=== PATIENT | female | born 1975 | race Caucasian/White ===

== ENCOUNTER 2017-10-12 11:03 | Day surgery (SDC) | payer BC, SELFPAY ==
[2017-10-12] VITALS (7 sets, daily range): BP systolic 121–126; BP diastolic 77–87; PULSE 74–98; RESP 16–18; TEMP 36.4–36.8; O2SAT 94–100; BMI 28.0
[2017-10-12 11:29] LABS: Internal QC Validated? YES +Cl - CLEAR BKGD; Pregnancy, Urine Negative Negative
--- NOTE | 2017-10-12 12:18 | PCM.DC.TUB ---
Discharge Diet: No Restrictions Discharge Activity: May not drive while taking narcotic pain medications., May Shower, May Take a Tub Bath Return to work on:: 10/17/17 May resume sexual activity in: 1-2 weeks - when comfortable Weight Bearing Status: Weight bearing as tolerated Additional Activity Instructions:: Ambulate often the next week after surgery. Call your doctor if you observe: Fever of 101 or Higher, Using more than one pad per hour, Calf discomfort, Uncontrolled pain Change Dressing in (Days):: 4 Remove Dressing in (days):: 4 Cleanse incision/area with: Soap & Water, Keep Dressing Clean & Dry Additional Instructions: You may take Aleve or Ibuprofen for milder pain, and ADD Percocet as needed for more severe pain. Allergies/Adverse Reactions: Allergies No Known Allergies Allergy (Verified 10/05/17 14:59) Medications to take at Discharge Duloxetine Hcl [Cymbalta] 60 mg PO DAILY 09/02/16 Lorazepam [Ativan] 0.5 mg PO DAILY PRN PRN 10/05/17 Oxycodone HCl/Acetaminophen [Percocet 2.5-325 mg Tablet] 1 - 2 tablet PO Q6H PRN PRN 2 Days #10 tablet 10/12/17 The following prescriptions were given: Oxycodone HCl/Acetaminophen [Percocet 2.5-325 mg Tablet] 1 - 2 tablet PO Q6H PRN PRN 2 Days #10 tablet PRN Reason: Mod-Severe Pain (4-04/19) Primary Care Physician: Care Physician,No Primary [Primary Care Provider] - Please Follow Up With: Emelyn Mares MD - [phone] When: in two weeks as planned for postop incision check
--- NOTE | 2017-10-12 12:30 | FALS_PTH ---
PATIENT: WILLIAMS GOLDEN LOC: [facility] [place] U#:[id number] AGE/SX: 42/F ROOM: RE10/12/[address]: Dr. Emelyn Mares MD : 1975 BED: DIS: 10/12/2017 SPEC #: [id number] RECD: 10/12/17 16:10 STATUS: MICHAEL DEANNA #: [id number] VIDHI: 10/12/17 12:[address]: Emelyn Mares DEPT: SURGICAL PATHOLOGY RECD BY: Russell Young ENTERED: 10/13/17 08:04 SP TYPE: FALL TUBES OTHR DR: No Primary Care Phys Tissues: Fallopian tube Procedures: Surgery Specimen Level II HEADER OPERATION: Laparoscopic salpingectomy PRE-OP DIAGNOSIS: Sterilization request TISSUE SUBMITTED: Bilateral fallopian tubes MICROSCOPIC DIAGNOSIS Bilateral fallopian tubes, bilateral salpingectomy: Bilateral fallopian tubes including fimbrial ends, no pathologic diagnosis. CAM:maddi 10/14/17 MICROSCOPIC DESCRIPTION Slides are reviewed. GROSS DESCRIPTION Received in fixative is one container labeled with the patient's name and designated bilateral fallopian tubes. The specimen consists of two fallopian tubes with an average length of 5 cm and has a maximal diameter of 0.5 cm. Both fallopian tubes have normal fimbriated ends. No mass lesions are identified. Embossing Clerk sections are submitted in two cassettes as follows: 1 ? one fallopian tube, 2 ? the other fallopian tube. / AM:maddi 10/13/17 TC:4 CPT: 31163 x2
[2017-10-12] MEDS: Bupiv/Epi 0.5% Mpf 30 ML Vial (13:10)
--- NOTE | 2017-10-12 13:25 | PCM.OP.BLANK ---
Operative Report Date of Procedure: 10/12/17 - Laparoscopic Bilateral salpingectomy PROCEDURE: Laparoscopic Bilateral Salpingectomy Lysis of adhesions PREOPERATIVE DIAGNOSIS: Sterilization request POSTOPERATIVE diagnosis: Sterilization request Surgeon: Emelyn Mares MD Anesthesia: general anesthesia. Jennyfer Quiñonez MD EBL: minimal Complications: None Drains: Red Chu catheter used to drain the bladder prior to initiation of the case Fluids: LR replacement Findings; Normal appearing, retroverted uterus. Fallopian tubes and ovaries are WNL. Adhesion in LLQ between bowel and pelvic side wall. (dissected free) Gross inspection of bowel, omentum. liver edge also WNL. photos were taken of the uterus and ovaries after Bilateral salpingectomy, and of the RUQ / liver edge. She i Narrative account: After the risks, benefits, alternatives of procedure had been reviewed with the patient, informed consent was obtained. The patient was taken back to the Operative room with an IV running. she was positioned on the operating table in dorsal supine position, where she was given general anesthesia. Once asleep she was repositioned to the dorsal lithotomy position and prepped and draped in the usual sterile fashion. A red Chu catheter was used to drain the bladder prior to initiating the case. A single toothed tenaculum and Venecia cannula were placed into the cervix to allow manipulation of the uterus and cervix during the case. Attention was then turned to the anterior abdominal wall where 0.25 % Marcaine with epinephrine was instilled at the suprapubic and infraumbilical skin and at a point midway between in the midline. Skin incisions were then created in the midline at the suprapubic skin and at the infraumbilical skin and midway between the two. While maintaining upward traction of the anterior abdominal wall a Veress needle was inserted through the umbilical incision into the peritoneal cavity. There was free drop of saline, low opening pressure and free flow of CO2 noted. Once the intraabdominal pressure had reached 12 mm of mercury the Veress needle was removed and a bladeless 5 mm trocar was placed through infraumbilical skin incision into the peritoneal cavity. Correct placement was confirmed using the scope. Under direct visualization then with the patient in Trendelenburg position, a bladeless 5 mm trocar was inserted in through suprapubic skin incision into the peritoneal cavity and at a point midway between the infraumbilical and suprapubic trocars. The uterus as anteverted and both ovaries and fallopian tubes were WNL. There was an adhesion in the LLQ between the bowel and pelvic side wall, which was taken down by blunt dissection. Excellent hemostasis was noted. The Left fallopian tube was grasped and retracted medially and using a LigaSure device the fallopian tube was excised from the ovary and mesosalpinx. Excellent hemostasis was noted at the excision site. The L fallopian tube was brought through the suprapubic trocar and set aside for later pathology review. In a similar manner the R fallopian tube was grasped and retracted medially and the fallopian tube was excised and removed from the abdominal cavity through the suprapubic trochar. The Fallopian tubes were sent to pathology. Excellent hemostasis was noted by visualization of the pelvis, ovaries, and remaining mesosalpinx. Photos were taken of the uterus and Bilateral remaining ovaries and of the RUQ and liver edge. At this point the the procedure was terminated. The pneumoperitoneum was reduced and the instruments and trocars were removed from he the anterior abdominal wall skin. The skin incisions were closed with 4-0 Monocryl in a subcuticular fashion. Dermabond and OpSites were applied to the skin. The Single toothed tenaculum and Venecia cannula were removed from the vagina. The patient was returned to dorsal supine position. She was awakened from general anesthesia. She was transferred to the recovery room bed in stable condition after tolerating the procedure well. Sponge, lap, needle and instrument counts were correct x two. Medications given preop and intraoperatively included: 10 cc of 1/2 % Marcaine with epinephrine --used as a subcutaneous block, and Toradol 30 mg IV x one. For a complete listing of medications given preop and intraop , please see the anesthesia record.
== END 2017-10-12 15:02 | disposition home or self-care (01) ==
LOC: SDC 11:07 → AC 11:08
PROVIDERS: Anesthesiology; Visit Provider Obstetrics & Gynecology
PROC: (CPT 58661; principal; 2017-10-12 12:15)
DX: Z30.2 Encounter for sterilization (principal); F41.9 Anxiety disorder, unspecified; F32.9 Major depressive disorder, single episode, unspecified; Z79.899 Other long term (current) drug therapy
CPT/HCPCS: 49329; 58661; 81025; 88302; J7120; J2405

== ENCOUNTER → 2017-10-26 09:19 | Outpatient (CLI) | payer BC, SELFPAY ==
--- NOTE | 2017-10-26 09:21 | BI_ITS ---
MAMMOGRAPHY - BILATERAL SCREENING REASON FOR EXAM: Female, 42 years old. Routine annual screening examination. PERTINENT HISTORY: Non-contributory. TECHNIQUE: Digital bilateral breast shweta (3D mammographic acquisition) in the CC and MLO projections. 2-D mediolateral oblique (MLO) and craniocaudad (CC) views of both breasts were obtained. CAD: Full Field Digital Mammography with Computer Added Detection was performed. COMPARISON: None. Baseline examination. FINDINGS: Breast Composition: The breasts are heterogeneously dense, which may obscure small masses. There are no dominant masses or suspicious calcifications. Small bilateral benign appearing axillary lymph nodes. No other significant abnormalities are identified. BI/SCREENING MAMM (CAD), BILAT IMPRESSION: Negative screening mammogram. Yearly followup mammogram recommended. (A) ASSESSMENT CATEGORY: BIRADS Category 2: Benign. A letter regarding these results will be sent to the patient by the facility within 30 days. Approximately 10% of breast cancers are not detected by mammography. A normal mammogram should not delay biopsy of a clinically suspicious abnormality. [id number] Electronically Signed: Javier Regan MD at 10:51 EDT Tel [phone], Service support ,
== END ==
PROVIDERS: Visit Provider Obstetrics & Gynecology
DX: Z12.31 Encounter for screening mammogram for malignant neoplasm of breast (principal)
CPT/HCPCS: 77063; 77067

== ENCOUNTER 2018-02-28 08:47 | Emergency (ER) | payer BC, SELFPAY ==
[2018-02-28 08:47] VITALS: BP 133/84; PULSE 95; RESP 16; TEMP 37.3; O2SAT 95; BMI 29.3
--- NOTE | 2018-02-28 09:16 | ED.VISSUMM ---
- ER Visit Summary Date of Service: 02/28/18 Chief Complaint: Abdominal pain History of Present Illness: The patient is a [address] Barrett. She reports that she has left-sided abdominal pain that began 3 days ago. It is a cramping, stabbing pain is 7 out of 10 at worst and 2 out of 10 currently. Is worsened by movement, bending, or twisting. Is relieved by remaining still. She has nausea without vomiting. She had 2 episodes of diarrhea today. No blood in her stools or black tarry stools. No dysuria or frequency. Last menstrual period was 2 weeks ago. She reports she has had similar symptoms with diverticulitis in the past. On review of systems patient reports that she has a headache that stated 10 severity. She has a history of similar headaches. She describes as a throbbing pain posterior to her eyes and the top of her head. She does have photophobia. She denies any recent injury to her head. No change in her vision. No numbness or weakness. Physical Examination: Vitals: Stable. Afebrile. General: Well-nourished and well-developed. Head: Normocephalic atraumatic. Neck: Supple, no lymphadenopathy. No JVD. Nontender. Cardiovascular: Regular rate and rhythm. No murmurs. Respiratory: No respiratory distress. Clear to auscultation bilaterally. Abdominal: Soft, mild tenderness palpation in the left upper and left lower quadrants, normal bowel sounds. No guarding, rebound, or peritoneal signs. Back: Nontender. Extremities: Nontender, no edema. Skin: Normal color, no rash. Neurologic: Alert and oriented ?3. Cranial nerves II through XII are intact. Normal strength and sensation. Psych: Normal affect. Test Results: CBC is marked for a white count of 11.3, segmented neutrophils 88, lymphocytes of 8. Chem-7 is more for chloride 108. UA is normal. test negative. CT flank shows no uncomplicated acute diverticulitis of the splenic flexure and proximal descending colon. Emergency Department Course and Treatment: Patient had an IV placed. She was given Toradol, Reglan, and Benadryl IV. She is resting comfortably. She was given Cipro and Flagyl p.o. Treatment Plan: Patient will be discharged on Cipro, Flagyl, and [place]. Instructed to follow-up her primary care physician 1 week for repeat exam. Return to the emergency department for any worsening symptoms. Disposition: To home in improved and stable condition. Impression: 1. Diverticulitis. 2. Migraine headache. This note was generated with [employer] dictation software. It may contain incorrect words, spelling, and punctuation that were not noted in review of the chart prior to signing ED Disposition - Plan for ED Patient: Chief Complaint: Abd Pain Instructions: ED Diverticulitis Prescriptions: Docusate Sodium [Colace] 100 mg PO DAILY #20 capsule Hydrocodone/Acetaminophen [[place] 5-325 Tablet] 1 - 2 each PO 4X/DAY PRN PRN 3 Days #12 tablet PRN Reason: Pain Ciprofloxacin [Cipro] 500 mg PO BID #20 tablet Metronidazole [Flagyl] 500 mg PO Q6H #40 tablet Referrals: Annemarie Barrett DO [Primary Care Provider] - 1 Week
[2018-02-28 09:17] LABS: Bacteria 0 SEEN /hpf (None Seen); Mucous, Urine 0 SEEN /hpf (<or=2+); Red Blood Cells-Urine 0 SEEN /hpf (0-5)
[2018-02-28 09:22] LABS: Color, Urine Yellow (Yellow); Glucose, Dipstick Normal (Normal); Ketone-Dipstick Negative (Negative); Leukocyte Esterase-Dipstick Negative /ul (Negative); Nitrite-Dipstick Negative (Negative); Occult Blood-Urine Negative /ul (Negative); Protein-Dipstick Negative (Negative); Urine Bilirubin Dipstick Negative (Negative); Urine Clarity Clear (Clear); Urine Urobilinogen Normal (Normal)
[2018-02-28] MEDS: Metoclopramide 10 MG/2 ML Vial IV (09:24)
[2018-02-28] MEDS: 0.9% Normal Saline 1,000 ML 1000 ML IV (09:24)
[2018-02-28] MEDS: DiphenhydrAMINE 50 MG/ML Syringe IV (09:24)
[2018-02-28] MEDS: Ketorolac 30 MG/ML Syringe IV (09:24)
[2018-02-28 09:29] LABS: Internal QC Validated? YES +Cl - CLEAR BKGD; Pregnancy, Urine Negative Negative
[2018-02-28 09:33] LABS: Absolute Lymphocyte Count 0.87 X10^3/ul (0.83-4.51); Absolute Neutrophil Count 9.9 X10^3/uL (2.0-7.7); Basophil# 0.02 X10^3/uL; Basophil% 0.2 % (0-1); Eosinophil# 0.05 X10^3/uL; Eosinophils% 0.4 % (0-5); Hematocrit 40.9 % (37-47); Hemoglobin 13.1 g/dl (12.0-15.0); Lymphocyte # 0.87 X10^3/ul (4.0); Lymphocyte % 7.7 % (19-41); Mean Corpuscular Hgb 29.4 pg (27.0-32.0); Mean Corpuscular Volume 91.9 fL (81-99); Mean Platelet Vol. 10.9 fl (6.2-12.0); Monocyte# 0.41 X10^3/uL; Monocyte% 3.6 % (0-10); Neutrophil # 9.92 X10^3/uL (2.7-7.7); Neutrophil % 87.9 % (47-70); Platelet Count 222 K/mm3 (150-450); RBC Distribution Width CV 13.6 % (11.6-14.6); RBC Distribution Width SD 45.7 fl (35.1-43.9); Red Blood Count 4.45 M/mm3 (4.2-5.4); White Blood Count 11.3 K/mm3 (4.4-11.0)
[2018-02-28 09:36] LABS: POSITIVE COUNT NO; POSITIVE DIFFERENTIAL NO; POSITIVE MORPHOLOGY NO
[2018-02-28 09:38] LABS: Anion Gap 5 (5-15); BUN 9 mg/dL (7-18); BUN/Creat Ratio 15.7 RATIO (10-20); Calcium,Total 8.5 mg/dL (8.5-10.1); Chloride 108 mmol/L (98-107); Creatinine, Serum 0.57 mg/dL (0.55-1.02); EST Glomerular Filtration Rate 122 mL/min (>60); Est Glom Filt Rate - Afr Amer 148 mL/min (>60); Estimated Creatinine Clearance 111.03 ml/min; Glucose 101 mg/dL (74-106); Potassium 3.7 mmol/L (3.5-5.1); Sodium Level 141 mmol/L (136-145)
[2018-02-28 09:45] LABS: Squamous Epithelial Cells - UA 0-5 SEEN /hpf (5-10); White Blood Cells 0 SEEN /hpf (0-5)
[2018-02-28] MEDS: Ciprofloxacin 500 MG Tablet PO (10:31)
[2018-02-28] MEDS: metroNIDAZOLE 500 MG Tablet PO (10:31)
[2018-02-28 10:37] VITALS: BP 136/78; PULSE 82; RESP 16; O2SAT 98
== END 2018-02-28 10:38 | disposition home or self-care (01) ==
LOC: ED 09:32
PROVIDERS: Emergency Provider Emergency Medicine; PCP Family Medicine
DX: K57.32 Diverticulitis of large intestine without perforation or abscess without bleeding (principal); G43.909 Migraine, unspecified, not intractable, without status migrainosus
CPT/HCPCS: 74176; 80048; 81001; 81025; 85025; 96374; 96375; 99284; J7030

== ENCOUNTER → 2018-07-31 14:47 | Outpatient (CLI) | payer BC, SELFPAY ==
[2018-07-31 11:33] VITALS: BMI 29.2
--- OUTSIDE RECORDS SUMMARY | 2018-10-03 03:01 | XMS RPT_ITS ---
:1975 Author Organization OHIP Support Name Relationship Address Phone [facility] [place] [address] + [place] [address] CHANTEL RUSSELL Unavailable [address] + [place] [address] [facility] [place] [address] + [place] [address] RUSSELL GOLDEN Unavailable [address] + [place] [address] [facility] [place] [address] + [place] [address] RUSSELL GOLDEN Unavailable [address] + [place] [address] [facility] [place] [address] + [place] [address] BAILEY SALOMON Unavailable [address] + [facility] [address] RUSSELL GOLDEN Unavailable [address] + [place] [address] [facility] [place] [address] + [place] [address] BAILEY SALOMON Unavailable [address] + [facility] [place] [address] RUSSELL GOLDEN Unavailable [address] + [place] [address] [facility] [place] [address] + [place] [address] BAILEY SALOMON Unavailable [address] + [facility] [place] [address] RUSSELL GOLDEN Unavailable [address] + [place] [address] [facility] [place] [address] + [place] [address] BAILEY SALOMON Unavailable [address] + [place] [address] RUSSELL GOLDEN Unavailable [address] + [place] [address] [facility] [place] [address] + [place] [address] BAILEY SALOMON Unavailable [address] + [place] [address] RUSSELL GOLDEN Unavailable [address] + [place] [address] Care Team Providers Name Role Phone Cornel Duvall Attending Unavailable Malys, Annemarie Referring Unavailable Garth Rodriguez Attending Unavailable Matthewys, Annemarie Referring Unavailable Vishnu, Emelyn Attending Unavailable Benekos, Emelyn Referring Unavailable Primay Care Physicia, No Primary Care Unavailable Benekos, Emelyn Attending Unavailable Benekos, Emelyn Referring Unavailable Primay Care Physicia, No Primary Care Unavailable Primay Care Physicia, No Primary Care Unavailable Christian Griffiths Attending Unavailable Garth Rodriguez Attending Unavailable Michael, Garth Referring Unavailable Malys, Annemarie Primary Care Unavailable Trevor Perales Attending Unavailable Faustina Francis Attending Unavailable Malys, Annemarie Referring Unavailable Primay Care Physicia, No Primary Care Unavailable PROBLEMS PROBLEMS DATE TYPE CONDITION / CODE ATTENDING STATUS SOURCE 07/31/2018 Unknown J02.9 - Acute Garth Rodriguez Active [place] pharyngitis, Community unspecified / Hospital J02.9(ICD-10) Repository 07/13/2018 Unknown R52 - Pain, Cornel Duvall Active [place] unspecified / Community R52(ICD-10) Hospital Repository 02/28/2018 Unknown K57.92 - Christian Griffiths Active [place] Diverticulitis of Community intestine, part Hospital unspecified, without Repository perforation or abscess without bleeding / K57.92(ICD-10) 10/12/2017 Unknown R10.9 - Unspecified YungsEmelyn Active [place] abdominal pain / Community R10.9(ICD-10) Hospital Repository 10/12/2017 Unknown Z30.2 - Encounter Benekos, Emelyn Active [place] for sterilization / Community Z30.2(ICD-10) Hospital Repository PROCEDURES PROCEDURES No Procedure Records FoundRESULTS RESULTS Observed: 07/31/2018 Status: F Source: [place] CULTURE, R/O STREP A 3:29 PM [facility] REPOSITORY JOSEPHINE Culture * This cultures intended use is to screen for Beta Streptococcus A only. All other pathogens and potential pathogens will not be screened for or reported. If a complete workup of all potential pathogens is indicated an order for a routine throat culture is required. No Group A Beta Streptococcus isolated. Performed By: #### M100.010 #### [facility] [address] [place], [place], [address] URGENT CARE VISIT Observed: 07/31/2018 Status: F Source: [place] REPORT 11:38 AM [facility] REPOSITORY [facility] [address] [place] [address] [address] [place], [place] [address] OFFICE VISIT Date of Service: 07/31/18 MR#: [id number] Acct: [id number] Name: WILLIAMS GOLDEN Rep #: [id number] : 1975 Provider: Garth VILA Age/Sex: 43/F Location: [facility] Status: Signed Intake Vital Signs07/31/18 Body Mass Index (BMI) 29.2 07/31/18 Height 5 ft 5 in Intake Visit Reasons: COUGH/SORE THROAT Chief Complaint: sore throat 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 Accompanied by: self Is patient in pain?: No Allergies No Known Allergies Allergy (Verified 07/31/18 11:23) Medications Lorazepam [Ativan] 0.5 mg PO DAILY PRN PRN 10/05/17 [History Confirmed 07/31/18] citalopram 20 mg tablet 20 mg PO DAILY 04/02/18 [History Confirmed 07/31/18] fluticasone 50 mcg/actuation nasal spray,suspension 2 spray INTRANASAL DAILY #9.9 g 04/02/18 [Rx Confirmed 07/31/18] benzonatate 100 mg capsule 200 mg PO TID PRN #30 cap 07/31/18 [Rx Confirmed 07/31/18] cephalexin 500 mg capsule 500 mg PO Q12H 10 Days #20 cap 07/31/18 [Rx Confirmed 07/31/18] [facility] Medical History History of diverticulitis (Acute) History of seizures (in her 20s) (Acute) Surgical History History of (Acute) Social History Smoking Status: Never smoker alcohol intake: never HPI HPI Chief Complaint: sore throat Details: WILLIAMS GOLDEN, is a 43 F who presents to the office today for worsening cough and sore throat for the past 2 to half weeks. Patient was here on 07/13/2018 and diagnosed with influenza which is when her cough started and then it seemed to improve however over the past 2 weeks has worsened again. Additionally the sore throat has been present for the past 4-5 days with the left side of the throat being more sore than the right. She denies fever, chills, sweats. She describes her cough as productive of some minimal mucus and denies hemoptysis, shortness of breath or difficulty breathing. No nausea, vomiting, diarrhea. No other associated symptoms or alleviating/aggravating factors. ROS Const Constitutional: No fever(s), chills, headache(s), night sweats or abnormal sleep pattern ENT ENT: Positive for nasal discharge, nasal congestion, post nasal drip and sore throat; no headache(s), ear pain or ear discharge Resp Respiratory: Positive for cough Cough: Yes productive and pain with cough; no wheezing, hemoptysis or shortness of breath Cardio Cardiology: No chest pain at rest or shortness of breath Neuro Neurology: No headache(s), behavioral changes or confusion Psych Psychiatric: No abnormal sleep pattern, No behavioral changes, No confusion Aller/Imm Allergy/Immunologic: No wheezing Exam Const General: cooperative, well developed [facility] Head: normal to inspection, atraumatic Ears: hearing grossly normal bilaterally, TM's normal bilaterally, EAC's normal Nose: nasal discharge clear Face and sinus: normal facial exam Mouth: oral mucosae normal Throat: abnormal tonsil bilaterally, posterior oropharynx abnormal erythema; Negative for no exudates Resp Effort AND Inspection: normal respiratory effort, no audible wheezes Auscultation: Bilateral: Clear to Auscultation Cardio Palpation: normal PMI Rate: regular rate Rhythm: regular rhythm Neuro General: alert, CN's II-XI intact bilaterally Psych Appearance: grossly normal Mental Status: mental status grossly normal Results [facility] Office Rapid Strep A Negative Last Edit by Carrie Sellers on 07/31/18 11:33 Assessment AND Plan Problems 1. Acute pharyngitis, unspecified etiology J02.9 Status Acute Plan Keflex and benzonatate as prescribed today. Encouraged to get plenty of rest, drink lots of clear liquids, and use Tylenol or Ibuprofen (unless contraindicated) for fever and comfort. Patient also educated on other symptomatic management techniques. To be seen in 7-10 days if no improvement; sooner if worsening of symptoms. Patient advised of potential red flags and when appropriate to report to the ED. Patient verbalized understanding and agreement with all the above. Orders Orders: Medications New: Coding Level of Care Code Off vis,est,level 3 Diagnoses Acute pharyngitis, unspecified etiology J02.9 Pharyngitis/tonsillitis etiology: unspecified etiology 07/31/18 1138 <Electronically signed by Garth VILA> Date Garth VILA Cosigner Signature: Date (if applicable) CC: URGENT CARE VISIT Observed: 07/13/2018 Status: F Source: [place] REPORT 1:49 PM [facility] REPOSITORY [facility] [address] [place] [address] [address] [place] [address] OFFICE VISIT Date of Service: 07/13/18 MR#: [id number] Acct: [id number] Name: WILLIAMS GOLDEN Rep #: [id number] : 1975 Provider: Cornel VILA Age/Sex: 43/F Location: [facility] Status: Signed Intake Vital Signs07/13/18 Body Mass Index (BMI) 29.2 01/03/19 Height 5 ft 5 in 07/13/18 Weight: 175 lb 07/13/18 Body Mass Index (BMI) 29.1 07/13/18 Blood Pressure 134/86 H 07/13/18 Respiratory Rate 14 Intake Visit Reasons: EARACHE AND ILL Chief Complaint: DAVIS, Bilat earache, dry cough, myalgias, fever 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 Accompanied by: SELF Is patient in pain?: No Allergies No Known Allergies Allergy (Verified 07/13/18 12:16) Medications Lorazepam [Ativan] 0.5 mg PO DAILY PRN PRN 10/05/17 [History Confirmed 07/13/18] citalopram 20 mg tablet 20 mg PO DAILY 04/02/18 [History Confirmed 07/13/18] fluticasone 50 mcg/actuation nasal spray,suspension 2 spray INTRANASAL DAILY #9.9 g 04/02/18 [Rx Confirmed 07/13/18] oseltamivir 75 mg capsule 75 mg PO BID 5 Days #10 cap 07/13/18 [Rx Confirmed 07/13/18] [facility] Medical History History of diverticulitis (Acute) History of seizures (in her 20s) (Acute) Surgical History History of (Acute) Social History Smoking Status: Never smoker alcohol intake: never HPI HPI Chief Complaint: DAVIS, Bilat earache, dry cough, myalgias, fever Details: WILLIAMS GOLDEN, is a 43 F who presents to the office today for initial evaluation approximately 36-hour history of DAVIS, Bilat earache, dry cough, myalgias, fever. Patient noted having a T-max of 103.0 Fahrenheit this morning, taking Tylenol to assist with symptoms. She notes her has similar symptoms beginning about 5-6 days ago and is still symptomatic but never seek medical attention. She did not receive the influenza vaccine this year. Other than Tylenol she is taking no other cqsf-[id number]-ukxwdxp medication to assist with symptoms. She is a non-smoker. She notes no other associated symptoms and no other alleviating or aggravating factors. ROS Const Constitutional: No other (ROS negative x10 other than as noted above) Exam Const General: cooperative (Though warm to touch), healthy appearing, no acute distress, uncomfortable Nutritional Appearance: average body habitus Orientation: alert, awake, oriented x3 HENMT Head: normal to inspection Ears: hearing grossly normal bilaterally, external ears normal, TM's normal bilaterally, EAC's normal Nose: external nose normal, nares normal, septum normal, no nasal discharge Face and sinus: normal facial exam, sinuses nontender, face symmetric Mouth: oral mucosae normal, lip normal, tongue normal Teeth and gingiva: gingiva normal, dentition normal Throat: uvula midline, tonsils normal, posterior oropharynx normal, no postnasal drainage Eyes General: appearance normal, both eyes and all related structures Neck Neck: normal visual inspection, full ROM, no lymphadenopathy, no meningeal signs, supple Neck mass: No Thyroid: thyroid normal Lymphatic: no lymphadenopathy noted Chest Chest palpation AND inspection: normal inspection of the chest Resp Effort AND Inspection: normal respiratory effort, able to speak in complete sentences, symmetric chest movement, cough Quality of cough: dry Auscultation: Bilateral: Clear to Auscultation Cardio Palpation: normal PMI Rate: tachycardic Rhythm: regular rhythm Heart Sounds: S1 normal, S2 normal, no gallops, no murmurs, no rubs Pulses: radial pulses present GI Inspection: normal to inspection Palpation: soft, no hepatosplenomegaly Skin General: no rashes or lesions noted Neuro General: alert, awake, oriented x3, gait normal Cognition: normal cognition Speech: speech normal Gait: normal gait Motor: muscle tone normal throughout Sensory Exam: no sensory deficits noted Psych Appearance: grossly normal Mental Status: mental status grossly normal Mood: congruent mood Affect: normal affect Speech and Movement: speech and movement normal Attitude: cooperative Thought Process: normal Thought Content: normal Judgment: judgment good Results [facility] Office Flu A AND B Negative FLU A AND B Last Edit by Emelyn Youssef on 07/13/18 12:19 Assessment AND Plan Problems 1. Influenza J11.1 Plan Though rapid flu test was negative today, explained to patient the low sensitivity value of the test. Oseltamivir as prescribed today. Clear fluids, rest, Tylenol as needed for symptomatic relief. Work excuse given. Follow-up PCP in 3-5 days should symptoms not improve, sooner should symptoms worsen or any other concerns develop. Patient states acknowledging understanding all the above. This note was generated with Dragon dictation software. It may contain incorrect words, spelling, and punctuation that were not noted in checking the note before signing. Orders Orders: Medications New: Coding Level of Care Code Off vis,est,level 3 Diagnoses Influenza J11.1 07/13/18 1349 <Electronically signed by Cornel VILA> Date Cornel VILA Cosigner Signature: Date (if applicable) CC: OFFICE VISIT REPORT Observed: 04/02/2018 Status: F Source: [place] 11:[address] [place] [address] OFFICE VISIT Date of Service: 04/02/18 MR#: [id number] Acct: [id number] Patient: WILLIAMS GOLDEN Rep #: [id number] : 1975 Provider: Faustina Francis Age/Sex: 42/F Location: [facility] Status: Signed Intake Vital Signs04/02/18 Height 5 ft 4 in 04/02/18 Weight: 170 lb 04/02/18 Body Mass Index (BMI) 29.2 04/02/18 Blood Pressure 102/74 Intake Visit Reasons: HEAD CONGESTION/ RT EARACHE 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 Accompanied by: self Is patient in pain?: No Allergies No Known Allergies Allergy (Verified 04/02/18 08:56) Medications Lorazepam [Ativan] 0.5 mg PO DAILY PRN PRN 10/05/17 [History Confirmed 04/02/18] azithromycin 250 mg tablet See Label Instructions PO .COMPLEX #6 tab 04/02/18 [Rx Confirmed 04/02/18] citalopram 20 mg tablet 20 mg PO DAILY 04/02/18 [History Confirmed 04/02/18] fluticasone 50 mcg/actuation nasal spray,suspension 2 spray INTRANASAL DAILY #9.9 g 04/02/18 [Rx Confirmed 04/02/18] [facility] Medical History History of diverticulitis (Acute) History of seizures (in her 20s) (Acute) Social History Smoking Status: Never smoker alcohol intake: never HPI HPI Details: WILLIAMS GOLDEN, is a 42 F who presents to the office today for ROS Const Constitutional: Positive for body ache, fatigue, fever(s) and headache(s) Eyes Eyes: No light sensitivity, discharge or change in vision ENT ENT: Positive for headache(s), nasal congestion, nasal discharge, sinus pressure, post nasal drip and sore throat Resp Respiratory: Positive for cough Cardio Cardiology: No chest pain at rest, chest pain with exertion or shortness of breath Gastro GI: No diarrhea, nausea/dyspepsia or Vomiting blood/hematemesis Neuro Neurology: Positive for headache(s) Endo Endocrine: Positive for fatigue Exam Const General: cooperative, no acute distress Orientation: alert, oriented x3 HENMT Head: atraumatic, normocephalic Nose: mucous membranes and turbinates abnormal erythematous Mouth: moist mucous membranes Throat: posterior oropharynx abnormal erythema, postnasal drainage Eyes General: appearance normal, both eyes and all related structures Sclera: sclerae normal Cornea: corneas normal Pupils: PERRL EOM: EOM intact bilaterally Neck Neck: no lymphadenopathy, trachea midline, supple Neck mass: No Thyroid: thyroid normal Resp Effort AND Inspection: normal respiratory effort Auscultation: Bilateral: Clear to Auscultation Cardio Palpation: normal PMI Rate: regular rate Rhythm: regular rhythm Heart Sounds: S1 normal, S2 normal, no click, no gallops, no murmurs, no rubs GI Auscultation: normal bowel sounds Percussion: normal to percussion Palpation: soft, no hepatosplenomegaly, nontender Skin General: no rashes or lesions noted Neuro General: alert, oriented x3, CN's II-XI intact bilaterally, no focal motor deficits Assessment AND Plan 1. Acute non-recurrent pansinusitis J01.40 Plan Encouraged use of OTC symptomatic relief with hydration, advil/tylenol, flonase. Antx given. Instructed that if not improved after treatment should follow up with PCP Plan Detail Other Medications New: azithromycin (Zithromax Z-Niles) take 500 mg today (day 1), then 2 CADENCE Botello 50 mg for 4 days (days 2-5) PO Discontinued: oxycodone-acetaminophen 2.5-325 1 - 2 tabs PO Q6H PRN 2 days PRR10.9, Z30.2 Emelyn N Cogar mg Discontinued Reason: Pt nN Mod-Severe Pain (4-04/19) o longer taking docusate sodium Discontinued 100 mg PO DAILY Emelyn George Cogar Reason: Pt no longer taking Coding Level of Care Code Off vis,new,level 3 Diagnoses Acute non-recurrent pansinusitis J01.40 Sinusitis location: pansinusitis Chronicity: acute Recurrence: non-recurrent 04/02/18 1130 <Electronically signed by Faustina VILA> Date Faustina VILA Cosigner Signature: Date (if applicable) CC: EMERGENCY DEPARTMENT Observed: 02/28/2018 Status: F Source: [place] SUMMARY 5:29 PM [facility] REPOSITORY [facility] Medical Records Department [address] [place] [address] Emergency Department Summary 02/28/18 0916 MR#: [id number] Acct: [id number] Name: WILLIAMS GOLDEN Rep #: [id number] : 1975 42 From: Christian Griffiths MD PCP: Annemarie Barrett DO Status: DEP ER - ER Visit Summary Date of Service: 02/28/18 Chief Complaint: Abdominal pain History of Present Illness: The patient is a [address] Barrett. She reports that she has left-sided abdominal pain that began 3 days ago. It is a cramping, stabbing pain is 7 out of 10 at worst and 2 out of 10 currently. Is worsened by movement, bending, or twisting. Is relieved by remaining still. She has nausea without vomiting. She had 2 episodes of diarrhea today. No blood in her stools or black tarry stools. No dysuria or frequency. Last menstrual period was 2 weeks ago. She reports she has had similar symptoms with diverticulitis in the past. On review of systems patient reports that she has a headache that stated 10 severity. She has a history of similar headaches. She describes as a throbbing pain posterior to her eyes and the top of her head. She does have photophobia. She denies any recent injury to her head. No change in her vision. No numbness or weakness. Physical Examination: Vitals: Stable. Afebrile. General: Well-nourished and well-developed. Head: Normocephalic atraumatic. Neck: Supple, no lymphadenopathy. No JVD. Nontender. Cardiovascular: Regular rate and rhythm. No murmurs. Respiratory: No respiratory distress. Clear to auscultation bilaterally. Abdominal: Soft, mild tenderness palpation in the left upper and left lower quadrants, normal bowel sounds. No guarding, rebound, or peritoneal signs. Back: Nontender. Extremities: Nontender, no edema. Skin: Normal color, no rash. Neurologic: Alert and oriented 3. Cranial nerves II through XII are intact. Normal strength and sensation. Psych: Normal affect. Test Results: CBC is marked for a white count of 11.3, segmented neutrophils 88, lymphocytes of 8. Chem-7 is more for chloride 108. UA is normal. test negative. CT flank shows no uncomplicated acute diverticulitis of the splenic flexure and proximal descending colon. Emergency Department Course and Treatment: Patient had an IV placed. She was given Toradol, Reglan, and Benadryl IV. She is resting comfortably. She was given Cipro and Flagyl p.o. Treatment Plan: Patient will be discharged on Cipro, Flagyl, and [place]. Instructed to follow-up her primary care physician 1 week for repeat exam. Return to the emergency department for any worsening symptoms. Disposition: To home in improved and stable condition. Impression: 1. Diverticulitis. 2. Migraine headache. This note was generated with ViaCLIXation software. It may contain incorrect words, spelling, and punctuation that were not noted in review of the chart prior to signing ED Disposition - Plan for ED Patient: Chief Complaint: Abd Pain Instructions: ED Diverticulitis Prescriptions: Docusate Sodium [Colace] 100 mg PO DAILY #20 capsule Hydrocodone/Acetaminophen [[place] 5-325 Tablet] 1 - 2 each PO 4X/DAY PRN PRN 3 Days #12 tablet PRN Reason: Pain Ciprofloxacin [Cipro] 500 mg PO BID #20 tablet Metronidazole [Flagyl] 500 mg PO Q6H #40 tablet Referrals: Annemarie Barrett, [Primary Care Provider] - 1 Week What to do if you have Problems For any increased pain, shortness of breath, bleeding, nausea or vomiting, chest pain, or any unexpected problems, contact your Primary Care Provider. Call [facility] ([phone]) or report to the closest Emergency Room. Call 911 if necessary. 02/28/18 4332 <Electronically signed by Christian Griffiths MD> Date Christian Griffiths MD Cosigner Signature (If Indicated): Date CC: No Primary Care Physician; Annemarie Barrett DO CBC W/DIFF, AUTOMATED Collected: 02/28/2018 Status: F Source: [place] 9:20 AM [facility] REPOSITORY TYPE CODE TESTS RESULT OUT OF RANGE REFERENCE UNITS LAB L100.1000 4.4-11.0 K/mm3 High WBC 11.3 LAB L100.1200 4.2-5.4 M/mm3 Normal RBC 4.45 LAB L100.1300 12.0-15.0 g/dl Normal HGB 13.1 LAB L100.1400 37-47 % Normal HCT 40.9 LAB L100.1500 81-99 fL Normal MCV 91.9 LAB L100.1600 27.0-32.0 pg Normal MCH 29.4 LAB L100.1700 32-36 g/gl Normal MCHC 32.0 LAB L100.1810 11.6-14.6 % Normal RDW CV 13.6 LAB L100.1820 35.1-43.9 fl High RDW SD 45.7 LAB L100.1900 150-450 K/mm3 Normal PLT 222 LAB L100.2000 6.2-12.0 fl Normal MPV 10.9 LAB L100.2100 47-70 % High NEUT% 87.9 LAB L100.2200 19-41 % Low LY% 7.7 LAB L100.2300 0-10 % Normal MONO% 3.6 LAB L100.2400 0-5 % Normal EO% 0.4 LAB L100.2500 0-1 % Normal BASO% 0.2 LAB L100.2550 0.0-0.9 % Normal IM GRAN % 0.200 Result Comment: IG% - Immature Granulocytes (promyelocytes, myelocytes and metamyelocytes) > 1% indicates that a LEFT SHIFT is Present. LAB L100.2620 2.0-7.7 X10 3/uL High Absolute Neut 9.9 LAB L100.2720 0.83-4.51 X10 3/ul Normal Absolute Lymph 0.87 Performed By: #### L100.0100 #### [facility] [address] [place], [address] BASIC METABOLIC Collected: 02/28/2018 Status: F Source: [place] PROFILE (BMP) 9:20 AM [facility] REPOSITORY TYPE CODE TESTS RESULT OUT OF RANGE REFERENCE UNITS LAB L501.0100 74-106 mg/dL Normal GLU 101 Result Comment: Fasting Glucose result from 100 to 125 mg/dL suggests IMPAIRED HOMEOSTASIS per A.D.A. criteria. Please note revised GLUCOSE reference range effective 2017. LAB L501.1000 7-18 mg/dL Normal BUN 9 LAB L501.1100 0.55-1.02 mg/dL Normal CREAT,SERUM 0.57 Result Comment: The validity of the calculated GFR AND GFRAA in patients over 70 years has not been determined. Clinical correlation is essential. LAB L501.1110 >60 mL/min Normal EST GFR 122 Result Comment: Non- GFR Calc LAB L501.1115 >60 mL/min Normal EST GFR - AA 148 Result Comment: GFR Calc LAB L501.1255 ml/min Normal Estimated CRCL 111.03 LAB L501.1300 10-20 RATIO BUN/CRE Normal 15.7 LAB L501.2200 8.5-10 mg/dL .1 CA Normal 8.5 LAB L501.5300 136-14 mmol/L 5 NA Normal 141 LAB L501.5600 3.5-5. mmol/L 1 K Normal 3.7 LAB L501.5900 98-107 mmol/L High CL 108 LAB L501.6100 21.0-3 mmol/L 2.0 CO2 Normal 28.0 LAB L501.6200 5-15 GAP Normal 5 Performed By: #### L500.2500 #### [facility] [address] [place], [address] ,URINE Collected: 02/28/2018 Status: F Source: [place] 9:10 AM [facility] REPOSITORY Order Comment: Has pt arrived? Y TYPE CODE TESTS RESULT OUT OF REFERENCE UNITS RANGE LAB L400.8000 Negative Normal HCGUQUAL Negative Result Comment: Very dilute urine specimens, as indicated by a low specific gravity, may not contain publications sales representative levels of hCG. If is still suspected, a first morning urine specimen should be collected 48 hours later and tested. Performed By: #### L400.7600 #### [facility] [address] [place], [place], [address] URINALYSIS, COMPLETE Collected: 02/28/2018 Status: F Source: SILVIS 9:10 AM [facility] REPOSITORY Order Comment: How was Urine Obtained? CLEAN CATCH TYPE CODE TESTS RESULT OUT OF RANGE REFERENCE UNITS LAB L400.3000 Yellow COLOR Normal Yellow LAB L400.3050 Clear Normal CLARITY Clear LAB L400.3200 Normal mg/dl Normal GLUCOSE, UR Normal LAB L400.3300 Negative mg/dL Normal BILIRUBIN URINE Negative LAB L400.3400 Negative mg/dl Normal KETONE UR Negative LAB L400.3465 1.002-1.030 Normal SP.GR. DIPSTX 1.010 LAB L400.3550 5.0 - 8.0 pH UR Normal 7.0 LAB L400.3600 Negative mg/dl PROT Normal DIPSTX Negative LAB L400.3700 Normal mg/dl Normal UROBILI Normal LAB L400.3750 Negative Normal NITRITE UR Negative LAB L400.3780 Negative /ul Normal OCCULT BLOOD-UR Negative LAB L400.3800 Negative /ul LEUK Normal ESTERASE Negative LAB L400.4050 0-5 /hpf WBC 0 Normal SEEN LAB L400.4100 0-5 /hpf 0 Normal RBC-UA SEEN LAB L400.4150 5-10 /hpf SQUAM Normal EPI 0-5 SEEN LAB L400.4300 None Seen /hpf 0 Normal BACTERIA SEEN LAB L400.4350 <or=2+ /hpf 0 Normal MUCUS, URINE SEEN Performed By: #### L400.0001 #### [facility] [address] [place], [address] ABDOMEN/PELVIS WITHOUT Observed: 02/28/2018 Status: F Source: SILVIS CONT 9:08 AM [facility] REPOSITORY [facility] Imaging Services [address] [place] [address] Abdomen/Pelvis without Cont MR#: [id number] Acct: [id number] Name: WILLIAMS GOLDEN Rep #: [id number] : 1975 F 42 From: Javier Regan MD PCP: Annemarie Barrett DO Status: REG ER Study: Abdomen/Pelvis without Cont Date of Exam: 02/28/18 Exam# [id number] Ordering Dr: Christian Griffiths MD STUDY: CT ABDOMEN AND PELVIS WITHOUT CONTRAST REASON FOR EXAM: Female, 42 years old. Left lower quadrant pain. History of diverticulitis. RADIATION DOSAGE (If Supplied By Facility): CTDIvol = ( 8.68 ) mGy, DLP = ( 390.30 ) mGycm TECHNIQUE: Transaxial images were obtained from the dome of the diaphragm to the symphysis pubis without oral contrast, and without intravenous contrast. Sagittal and coronal images were reconstructed. Individualized dose optimization techniques were used for this CT. COMPARISON: Comparison is made with prior study dated January 21, 2017. FINDINGS: Minimal degree of the increased markings at the lung bases suggestive mild bibasilar linear atelectasis. The visualized portions of the heart are within normal limits. Normal liver. Normal gallbladder and extrahepatic biliary system. Normal spleen. Normal pancreas. Normal bilateral adrenal glands. Normal right kidney. 2 mm calculus in the lower pole calyx of the left kidney. Normal visualized stomach. Normal small intestine. Mild degree of increased markings in the surrounding peritoneal fat at the level of the splenic flexure and the descending colon. Diverticula are seen at that site. This is in keeping with mild degree of diverticulitis. There are multiple colonic diverticula consistent with diverticulosis. The appendix is visualized and appears normal. Normal abdominal aorta. Normal inferior vena cava. Normal retroperitoneum. Normal urinary bladder. Enlargement of the right ovary. I suspect small cysts or dominant follicles in the right ovary. There is a small umbilical hernia containing fat. Normal osseous structures. CT/Abdomen/Pelvis without Cont IMPRESSION: Diffuse diverticulosis of the left hemicolon with findings suggestive of a noncomplicated acute diverticulitis of the splenic flexure and proximal descending colon. Electronically Signed: Javier Regan MD at 10:02 EDT Tel [phone], Service support , CC: Annemarie Barrett DO; Christian Griffiths MD Tie Binder: Signed SCREENING MAMM (CAD), Observed: 10/26/2017 Status: F Source: [facility] 9:21 AM [facility] REPOSITORY [facility] Imaging Services [address] [place] [address] SCREENING MAMM (CAD), BILAT MR#: [id number] Acct: [id number] Name: WILLIAMS GOLDEN Rep #: [id number] : 1975 F 42 From: Javier Regan MD PCP: Care Physician, No Primary Status: REG [facility] Study: SCREENING MAMM (CAD), BILAT Date of Exam: 10/26/17 Exam# [id number] Ordering Dr: Emelyn Mares MD MAMMOGRAPHY - BILATERAL SCREENING REASON FOR EXAM: Female, 42 years old. Routine annual screening examination. PERTINENT HISTORY: Non-contributory. TECHNIQUE: Digital bilateral breast shweta (3D mammographic acquisition) in the CC and MLO projections. 2-D mediolateral oblique (MLO) and craniocaudad (CC) views of both breasts were obtained. CAD: Full Field Digital Mammography with Computer Added Detection was performed. COMPARISON: None. Baseline examination. FINDINGS: Breast Composition: The breasts are heterogeneously dense, which may obscure small masses. There are no dominant masses or suspicious calcifications. Small bilateral benign appearing axillary lymph nodes. No other significant abnormalities are identified. BI/SCREENING MAMM (CAD), BILAT IMPRESSION: Negative screening mammogram. Yearly followup mammogram recommended. (A) ASSESSMENT CATEGORY: BIRADS Category 2: Benign. A letter regarding these results will be sent to the patient by the facility within 30 days. Approximately 10% of breast cancers are not detected by mammography. A normal mammogram should not delay biopsy of a clinically suspicious abnormality. [id number] Electronically Signed: Javier Regan MD at 10:51 EDT Tel [phone], Service support , CC: No Primary Care Physician; Emelyn Mares MD Tie Binder: Signed OPERATIVE REPORT Observed: 10/12/2017 Status: F Source: SILVIS 1:30 PM [facility] REPOSITORY [facility] Medical Records Department [address] [place] [address] Operative Report 10/12/17 1325 MR#: [id number] Acct: [id number] Name: WILLIAMS GOLDEN Rep #: [id number] : 1975 42 From: Emelyn Mares MD PCP: Care Physician, No Primary Status: REG [facility] Y Location: [place] [address] Operative Report Date of Procedure: 10/12/17 - Laparoscopic Bilateral salpingectomy PROCEDURE: Laparoscopic Bilateral Salpingectomy Lysis of adhesions PREOPERATIVE DIAGNOSIS: Sterilization request POSTOPERATIVE diagnosis: Sterilization request Surgeon: Emelyn Mares MD Anesthesia: general anesthesia. Jennyfer Quiñonez MD EBL: minimal Complications: None Drains: Red Chu catheter used to drain the bladder prior to initiation of the case Fluids: LR replacement Findings; Normal appearing, retroverted uterus. Fallopian tubes and ovaries are WNL. Adhesion in LLQ between bowel and pelvic side wall. (dissected free) Gross inspection of bowel, omentum. liver edge also WNL. photos were taken of the uterus and ovaries after Bilateral salpingectomy, and of the RUQ / liver edge. She i Narrative account: After the risks, benefits, alternatives of procedure had been reviewed with the patient, informed consent was obtained. The patient was taken back to the Operative room with an IV running. she was positioned on the operating table in dorsal supine position, where she was given general anesthesia. Once asleep she was repositioned to the dorsal lithotomy position and prepped and draped in the usual sterile fashion. A red Chu catheter was used to drain the bladder prior to initiating the case. A single toothed tenaculum and Venecia cannula were placed into the cervix to allow manipulation of the uterus and cervix during the case. Attention was then turned to the anterior abdominal wall where 0.25 % Marcaine with epinephrine was instilled at the suprapubic and infraumbilical skin and at a point midway between in the midline. Skin incisions were then created in the midline at the suprapubic skin and at the infraumbilical skin and midway between the two. While maintaining upward traction of the anterior abdominal wall a Veress needle was inserted through the umbilical incision into the peritoneal cavity. There was free drop of saline, low opening pressure and free flow of CO2 noted. Once the intraabdominal pressure had reached 12 mm of mercury the Veress needle was removed and a bladeless 5 mm trocar was placed through infraumbilical skin incision into the peritoneal cavity. Correct placement was confirmed using the scope. Under direct visualization then with the patient in Trendelenburg position, a bladeless 5 mm trocar was inserted in through suprapubic skin incision into the peritoneal cavity and at a point midway between the infraumbilical and suprapubic trocars. The uterus as anteverted and both ovaries and fallopian tubes were WNL. There was an adhesion in the LLQ between the bowel and pelvic side wall, which was taken down by blunt dissection. Excellent hemostasis was noted. The Left fallopian tube was grasped and retracted medially and using a LigaSure device the fallopian tube was excised from the ovary and mesosalpinx. Excellent hemostasis was noted at the excision site. The L fallopian tube was brought through the suprapubic trocar and set aside for later pathology review. In a similar manner the R fallopian tube was grasped and retracted medially and the fallopian tube was excised and removed from the abdominal cavity through the suprapubic trochar. The Fallopian tubes were sent to pathology. Excellent hemostasis was noted by visualization of the pelvis, ovaries, and remaining mesosalpinx. Photos were taken of the uterus and Bilateral remaining ovaries and of the RUQ and liver edge. At this point the the procedure was terminated. The pneumoperitoneum was reduced and the instruments and trocars were removed from he the anterior abdominal wall skin. The skin incisions were closed with 4-0 Monocryl in a subcuticular fashion. Dermabond and OpSites were applied to the skin. The Single toothed tenaculum and Venecia cannula were removed from the vagina. The patient was returned to dorsal supine position. She was awakened from general anesthesia. She was transferred to the recovery room bed in stable condition after tolerating the procedure well. Sponge, lap, needle and instrument counts were correct x two. Medications given preop and intraoperatively included: 10 cc of 1/2 % Marcaine with epinephrine --used as a subcutaneous block, and Toradol 30 mg IV x one. For a complete listing of medications given preop and intraop , please see the anesthesia record. 10/12/17 1330 <Electronically signed by Emelyn Mares MD> Date Emelyn Mares MD CC: No Primary Care Physician; Emelyn Mares MD Signed FALLOPIAN TUBES/STERILIZATION Observed: 10/12/2017 Status: F Source: [place] 12:30 PM [facility] REPOSITORY Patient: WILLIAMS GOLDEN : 1975 (42/F) Acct Num: [id number] Phys: Emelyn Mares MD Unit Num: [id number] Loc: [facility] Specimen: [id number] Received: 10/12/17 - 1610 Spec Type: FALL TUBES TISSUES TISSUES: Fallopian tube GROSS DESCRIPTION Received in fixative is one container labeled with the patient's name and designated bilateral fallopian tubes. The specimen consists of two fallopian tubes with an average length of 5 cm and has a maximal diameter of 0.5 cm. Both fallopian tubes have normal fimbriated ends. No mass lesions are identified. [employer] sections are submitted in two cassettes as follows: 1 one fallopian tube, 2 the other fallopian tube. / AM:maddi 10/13/17 TC:4 CPT: 18411 x2 HEADER OPERATION: Laparoscopic salpingectomy PRE-OP DIAGNOSIS: Sterilization request TISSUE SUBMITTED: Bilateral fallopian tubes MICROSCOPIC DESCRIPTION Slides are reviewed. MICROSCOPIC DIAGNOSIS Bilateral fallopian tubes, bilateral salpingectomy: Bilateral fallopian tubes including fimbrial ends, no pathologic diagnosis. SJ:maddi 10/14/17 Signed Emmett Sandoval 10/14/17 <signature on file> Performed By: #### PFALS #### [facility] [address] [place], [address] DISCHARGE INSTRUCTION Observed: 10/12/2017 Status: F Source: SILVIS 12:24 PM [facility] REPOSITORY [facility] Medical Records Department [address] [place] [address] Instructions for Home/Discharge Instructions 10/12/17 1218 MR#: [id number] Acct: [id number] Name: WILLIAMS GOLDEN Rep #: [id number] : 1975 42 From: Emelyn Mares MD PCP: Care Physician, No Primary Status: REG [facility] Discharge Diet: No Restrictions Discharge Activity: May not drive while taking narcotic pain medications., May Shower, May Take a Tub Bath Return to work on:: 10/17/17 May resume sexual activity in: 1-2 weeks - when comfortable Weight Bearing Status: Weight bearing as tolerated Additional Activity Instructions:: Ambulate often the next week after surgery. Call your doctor if you observe: Fever of 101 or Higher, Using more than one pad per hour, Calf discomfort, Uncontrolled pain Change Dressing in (Days):: 4 Remove Dressing in (days):: 4 Cleanse incision/area with: Soap AND Water, Keep Dressing Clean AND Dry Additional Instructions: You may take Aleve or Ibuprofen for milder pain, and ADD Percocet as needed for more severe pain. Allergies/Adverse Reactions: Allergies No Known Allergies Allergy (Verified 10/05/17 14:59) Medications to take at Discharge Duloxetine Hcl [Cymbalta] 60 mg PO DAILY 09/02/16 Lorazepam [Ativan] 0.5 mg PO DAILY PRN PRN 10/05/17 Oxycodone HCl/Acetaminophen [Percocet 2.5-325 mg Tablet] 1 - 2 tablet PO Q6H PRN PRN 2 Days #10 tablet 10/12/17 The following prescriptions were given: Oxycodone HCl/Acetaminophen [Percocet 2.5-325 mg Tablet] 1 - 2 tablet PO Q6H PRN PRN 2 Days #10 tablet PRN Reason: Mod-Severe Pain () Primary Care Physician: Care Physician,No Primary [Primary Care Provider] - Please Follow Up With: Emelyn Mares MD - [phone] When: in two weeks as planned for postop incision check 10/12/17 1224 <Electronically signed by Emelyn Mares MD> Date Emelyn Mares MD CC: No Primary Care Physician ,URINE Collected: 10/12/2017 Status: F Source: SILVIS 11:15 AM [facility] REPOSITORY TYPE CODE TESTS RESULT OUT OF REFERENCE UNITS RANGE LAB L400.8000 Negative Normal HCGUQUAL Negative Result Comment: Very dilute urine specimens, as indicated by a low specific gravity, may not contain publications sales representative levels of hCG. If is still suspected, a first morning urine specimen should be collected 48 hours later and tested. Performed By: #### L400.7600 #### [facility] [address] [place], [address] ALLERGIES ALLERGIES DATE TYPE / CODE NAME / CODE REACTION SEVERITY SOURCE 07/31/2018 Drug No Known Unknown [place] [facility] Allergy/4160 Allergies/F00 Hospital [address]83(SNOMED 6329569(RXNOR Repository CT) M) ENCOUNTERS ENCOUNTERS ADMIT/DISCHARGE ACCOUNT ADMITTING ENCOUNTER LOCATION SOURCE NUMBER CLASS 07/31/2018 [id number] Ambulatory [place] Cynthia 4 [facility] ing:[facility]SPEC Repository 07/31/2018/ [id number] Ambulatory BMSBuilding:B [place] 9 1 [place] Repository 07/13/2018/ [id number] Ambulatory BMSBuilding:B [place] 9 6 [facility] Repository 04/02/2018/ [id number] Ambulatory BMSBuilding:B [place] 8 9 [place] Repository 03/30/2018 [id number] [facility] [place] [facility] 02/28/2018/ [id number] Emergency [place] Cyn[place] 8 0 [facility] ing:ED Repository 10/26/2017 [id number] Ambulatory Cynthia Cynthia 7 [facility] ing:OPBI Repository 10/12/2017/ [id number] Ambulatory [place] 8 7 [facility] ing:[facility] Repository PAYERS PAYERS ENCOUNTER GUARANTOR PAYER SUBSCRIBER SOURCE 07/31/2018 WILLIAMS Adams [place] [id number] Insurance:ANTHEMPolic HostetlerDOB: [facility] [place] [facility]: [id number] [address]Dvk: [id number] Repository Date:0365-11-12DV [address] () [id number] [place] [address]DT: 07/31/2018 Secondary NOT GIVENUNK Cyn[place] Insurance:SELF PAY [facility] Number: Effective Repository Date:2018-07-31 07/31/2018 WILLIAMS Adams Cynthia [id number] Insurance:ANTHEMPolic HostetlerDOB: [facility], y Number: [id number] Valley Hospital [address]Ayy: [id number] Repository Date:5866-47-70RQ BOX () 242742UWHNWZLCARLOS AMARAL [address]XN: 07/31/2018 Secondary NOT GIVENUNK [place] Insurance:SELF PAY [facility] Number: Effective Repository Date:2018-07-31 07/13/2018 WILLIAMS S Primary Russell Adams [place] [id number] Insurance:ANTHEMPolic HostetlerDOB: Community [employer], y Number: [id number] Valley Hospital [address]Eze: [id number] Repository Date:3265-58-80SH BOX () 047978YEWHSRDCARLOS AMARAL [address]HJ: 07/13/2018 Secondary NOT GIVENUNK Cyn[place] Insurance:SELF PAY [facility] Number: Effective Repository Date:2018-07-13 04/02/2018 WILLIAMS S Primary Russell Adams [place] [id number] Insurance:ANTHEMPolic HostetlerDOB: Community [employer], y Number: [id number] Valley Hospital [address]Yow: [id number] Repository Date:2151-17-74PE BOX () 684189IZIHKFNCARLOS AMARAL [address]OC: 04/02/2018 Secondary NOT GIVENUNK [place] Insurance:SELF PAY [facility] Number: Effective Repository Date:2018-04-02 03/30/2018 WILLIAMS S Primary Russell Adams [place] [id number] Insurance:ANTHEMPolic HostetlerDOB: Community [employer], y Number: [id number] Valley Hospital [address]Wca: [id number] Repository Date:4351-84-92ZA [address] () [address]STZOC[place], [place] [address]LM: 03/30/2018 Secondary NOT GIVENUNK Cyn[place] Insurance:SELF PAY [facility] Number: Effective Repository Date:2018-03-22 02/28/2018 WILLIAMS Dye Primary Russell Adams [place] [id number] Insurance:ANTHEMPolic HostetlerDOB: Community [employer] IZQUIERDOER, y Number: [id number] Valley Hospital [address]Bqq: [id number] Repository Date:2229-88-32GZ BOX () [address]88[address]QUVDRUJ, [place] [address]FJ: 02/28/2018 Secondary NOT GIVENUNK [place] Insurance:SELF PAY [facility] Number: Effective Repository Date:2018-02-28 10/26/2017 WILLIAMS S Primary Russell Adams Cyn[place] [id number] Insurance:ANTHEMPolic HostetlerDOB: Community [employer] IZQUIERDOER, y Number: [id number] Valley Hospital [address]Sgn: [id number] Repository Date:8850-85-00OD [address]OX () [address]05[address]IFBGCLY, [place] [address]FG: 10/26/2017 Secondary NOT GIVENUNK Cyn[place] Insurance:SELF PAY [facility] Number: Effective Repository Date:2017-09-29 10/12/2017 WILLIAMS Dye Primary Russell Adams [place] [id number] Insurance:ANTHEMPolic HostetlerDOB: Community [employer] IZQUIERDOER, y Number: [id number] Valley Hospital [address]Brj: [id number] Repository Date:7575-23-35QT [address]OX () [address]24[address]KXKOTTB, [place] [address]VZ: 10/12/2017 Secondary NOT GIVENUNK [place] Insurance:SELF PAY [facility] Number: Effective Repository Date:2017-09-29
== END ==
PROVIDERS: Family Provider Family Medicine; PCP Family Medicine; Referring Provider Physician Assistant Surgical; Visit Provider Physician Assistant Surgical
DX: J02.9 Acute pharyngitis, unspecified (principal)
CPT/HCPCS: 87081

== ENCOUNTER → 2019-11-06 10:07 | Outpatient (CLI) | payer BC, SELFPAY ==
[2018-07-31 11:33] VITALS: BMI 29.2
[2019-11-06 11:19] LABS: Absolute Lymphocyte Count 1.76 X10^3/uL (0.83-4.51); Absolute Neutrophil Count 3.6 X10^3/uL (2.0-7.7); Basophil# 0.06 X10^3/uL; Eosinophils% 1.7 % (0-5); Hematocrit 42.7 % (37-47); Lymphocyte # 1.76 X10^3/ul (4.0); Lymphocyte % 29.8 % (19-41); Mean Corp Hgb Conc 32.8 g/dL (32-36); Mean Corpuscular Hgb 30.2 pg (27.0-32.0); Mean Corpuscular Volume 92.2 fL (81-99); Mean Platelet Vol. 10.9 fl (6.2-12.0); Monocyte# 0.43 X10^3/uL; Monocyte% 7.3 % (0-10); NRBC Flagged by Analyzer 0 % (0-5); Neutrophil # 3.55 X10^3/uL (2.7-7.7); Platelet Count 260 K/mm3 (150-450); RBC Distribution Width CV 13.1 % (11.6-14.6); RBC Distribution Width SD 44.2 fl (35.1-43.9); Red Blood Count 4.63 M/mm3 (4.2-5.4); White Blood Count 5.9 K/mm3 (4.4-11.0)
[2019-11-06 11:55] LABS: AST(SGOT) 13 U/L (15-37); Alanine Aminotransfer ALT/SGPT 23 U/L (13-56); Albumin, Serum 3.6 g/dL (3.2-5.0); Alkaline Phosphatase 79 U/L (45-117); Anion Gap 3 (5-15); BUN 10 mg/dL (7-18); BUN/Creat Ratio 15.1 RATIO (10-20); Calcium,Total 8.8 mg/dL (8.5-10.1); Chloride 108 mmol/L (98-107); Cholesterol 256 mg/dL (200); Creatinine, Serum 0.66 mg/dL (0.55-1.02); EST Glomerular Filtration Rate 102 mL/min (>60); Est Glom Filt Rate - Afr Amer 124 mL/min (>60); Free T3 2.9 pg/mL (2.18-3.98); Globulin 3.5 g/dL (2.2-4.2); Glucose 83 mg/dL (74-106); High Density Lipoprotein 44 mg/dL; Potassium 4.2 mmol/L (3.5-5.1); Protein, Total 7.1 g/dL (6.4-8.2); Sodium Level 139 mmol/L (136-145); T4 Free Direct 0.88 ng/dL (0.76-1.46); Thyroid Stim Hormone (TSH) 0.78 uIU/mL (0.358-3.74); Triglycerides 200 mg/dL; Very Low Density Lipoprotein 40 mg/dL (5-40)
== END ==
PROVIDERS: PCP Family Medicine; Referring Provider Family Medicine; Visit Provider Family Medicine
DX: F41.9 Anxiety disorder, unspecified (principal); F32.9 Major depressive disorder, single episode, unspecified; R53.83 Other fatigue; Z51.81 Encounter for therapeutic drug level monitoring; Z86.32 Personal history of gestational diabetes
CPT/HCPCS: 36415; 80053; 80061; 83036; 84439; 84443; 84481; 85025

== ENCOUNTER → 2019-11-16 07:58 | Outpatient (CLI) | payer BC, SELFPAY ==
[2018-07-31 11:33] VITALS: BMI 29.2
[2019-11-16 08:41] LABS: Progesterone Level 10.31 ng/mL (See Comment)
== END ==
PROVIDERS: PCP Family Medicine; Referring Provider Obstetrics & Gynecology; Visit Provider Obstetrics & Gynecology
DX: N94.6 Dysmenorrhea, unspecified (principal)
CPT/HCPCS: 36415; 84144

== ENCOUNTER → 2020-03-26 08:29 | Outpatient (CLI) | payer BC, SELFPAY ==
[2018-07-31 11:33] VITALS: BMI 29.2
[2020-03-26 12:40] LABS: AST(SGOT) 10 U/L (15-37); Alanine Aminotransfer ALT/SGPT 25 U/L (13-56); Albumin, Serum 3.7 g/dL (3.2-5.0); Alkaline Phosphatase 79 U/L (45-117); Anion Gap 4 (5-15); BUN 11 mg/dL (7-18); BUN/Creat Ratio 16.7 RATIO (10-20); Calcium,Total 8.8 mg/dL (8.5-10.1); Chloride 107 mmol/L (98-107); Cholesterol 258 mg/dL (200); Creatinine, Serum 0.66 mg/dL (0.55-1.02); EST Glomerular Filtration Rate 103 mL/min (>60); Est Glom Filt Rate - Afr Amer 125 mL/min (>60); Globulin 3.6 g/dL (2.2-4.2); Glucose 91 mg/dL (74-106); High Density Lipoprotein 47 mg/dL; Protein, Total 7.3 g/dL (6.4-8.2); Sodium Level 138 mmol/L (136-145); Triglycerides 125 mg/dL; Very Low Density Lipoprotein 25 mg/dL (5-40)
[2020-03-26 13:51] LABS: Hemoglobin A1c 5.4 % (3.8-5.6)
== END ==
PROVIDERS: PCP Family Medicine; Visit Provider Family Medicine
DX: E78.5 Hyperlipidemia, unspecified (principal); R73.01 Impaired fasting glucose; Z51.81 Encounter for therapeutic drug level monitoring
CPT/HCPCS: 36415; 80053; 80061; 83036

== ENCOUNTER 2021-09-05 12:30 | Emergency (ER) | payer BC, SELFPAY ==
[2021-09-05 12:30] VITALS: BP 129/87; PULSE 92; RESP 16; TEMP 36.3; O2SAT 99; BMI 30.4
[2021-09-05 12:32] VITALS: BP 129/87; PULSE 92; RESP 16; TEMP 36.3; O2SAT 99
--- NOTE | 2021-09-05 12:52 | CT_ITS ---
EXAM: CT ABDOMEN AND PELVIS WITH INTRAVENOUS CONTRAST CLINICAL INDICATION: Diverticulitis. TECHNIQUE: Helically acquired images were obtained of the abdomen and pelvis with intravenous contrast. This CT exam was performed using one or more of the following dose reduction techniques: automated exposure control, adjustment of the mA and/or kV according to patient size, and/or use of iterative reconstruction technique. This report was created using ShipEarly report generation technology. CONTRAST: IV 75mL Isovue-370 COMPARISON: CT abdomen and pelvis with contrast 01/21/2017. FINDINGS: LOWER THORAX: Unremarkable. Lung bases are clear. No cardiomegaly. No significant pericardial effusion. ABDOMEN: LIVER: Unremarkable. Homogeneous. No focal mass. GALLBLADDER AND BILE DUCTS: Unremarkable. No calcified gallstones. No gallbladder distention or wall edema. No intra- or extrahepatic biliary ductal dilation. PANCREAS: Unremarkable. No focal cystic or solid mass. SPLEEN: Unremarkable. Normal size without focal cystic or solid mass. ADRENALS: Unremarkable. No nodules. KIDNEYS AND URETERS: Unremarkable. Normal renal size and position. No hydronephrosis. STOMACH AND BOWEL: Scattered diverticula in the sigmoid colon and descending colon. Mild inflammatory changes with intramural thickening in the mid descending colon consistent with mild acute diverticulitis. No stomach or bowel distention. PELVIS: APPENDIX: Normal. BLADDER: Unremarkable. REPRODUCTIVE: Unremarkable as visualized. No mass. ABDOMEN and PELVIS: INTRAPERITONEAL SPACE: Unremarkable. No ascites or other fluid collection. No free air. BONES/JOINTS: Unremarkable. No suspicious lytic or blastic abnormality. SOFT TISSUES: Unremarkable. No discrete abdominal or pelvic wall hernia. VASCULATURE: Unremarkable. Abdominal aorta is non-dilated. LYMPH NODES: Unremarkable. No enlarged lymph nodes. CT/Abdomen/Pelvis W IV Cont ONLY IMPRESSION: 1. Mild acute diverticulitis with intramural thickening in the left mid descending colon and diverticulosis along the sigmoid colon and descending colon. This is a new finding when compared to 01/21/2017. 2. No CT evidence of abscess or phlegmon in the abdomen and pelvis. 3. No other additional findings or changes. Electronically Signed: Valerio Limon MD at 14:19 EST ,
--- NOTE | 2021-09-05 12:53 | EDS_ITS ---
HPI HPI - GI History of Present Illness Chief Complaint: Abd Pain Narrative Narrative: Patient presents with left mid to lower quadrant abdominal pain that she has had for the last few days. She states her feeling like she had diverticulitis again started acting up about a week ago. It is intensified over the last few days. She denies any fevers or chills. Perhaps some slight nausea but no vomiting. She denies any diarrhea or constipation/obstipation. This is the third or fourth time that she feels she had diverticulitis. Her primary care physician is not in the office today. Last time she had diverticulitis was a few years ago. She presents at the urging of her to get things checked out and hopefully catch it early. [facility] Medical History (Updated 09/05/21 @ 15:41 by Valerio Glass MD) History of diverticulitis History of seizures (in her 20s) Home Medications lorazepam 0.5 mg PO DAILY PRN PRN 10/05/17 [History Last Taken Unknown] fluticasone propionate 50 mcg/actuation nasal spray,suspension 2 spray INTRANASAL DAILY #9.9 g 04/02/18 [Rx Last Taken Unknown] buspirone 5 mg tablet 5 mg PO tab 01/26/21 [History Last Taken Unknown] fluvoxamine 50 mg tablet 50 mg PO tab 01/26/21 [History Last Taken Unknown] progesterone micronized 200 mg capsule 200 mg PO cap 01/26/21 [History Last Taken Unknown] sumatriptan succinate 100 mg tablet 100 mg PO tab 01/26/21 [History Last Taken Unknown] ciprofloxacin HCl [Cipro] 500 mg PO BID #20 tab 09/05/21 [Rx Last Taken Unknown] metronidazole 500 mg PO TID #30 tab 09/05/21 [Rx Last Taken Unknown] Allergy/AdvReac Type Severity Reaction Status Date / Time No Known Allergies Allergy Verified 09/05/21 12:32 Surgical History History of Social History Smoking Status: Never smoker alcohol intake: never ROS ROS ED ROS Narrative Constitutional: No fever, no chills. HEENT: No sore throat. No neck pain. No loss of vision. No rhinorrhea. Cardiovascular: No chest pain. No palpitations. No pedal edema. Respiratory: No cough, no shortness of breath. Abdominal: Left lower quadrant abdominal pain. Mild nausea. No vomiting. No diarrhea or constipation. Genitourinary: No dysuria. No hematuria. Musculoskeletal: No myalgias. No arthralgias. Neurologic: No headaches. No dizziness. No lightheadedness. Skin: No rash. No change in color. Psychiatric: No depression. No anxiety. EXAM Physical Exam Narrative Exam Narrative: Afebrile. Vital signs noted. HEENT: Normocephalic. Atraumatic. PERRL, EOMI. Neck soft and supple. No point tenderness or step off. Cardiovascular: Regular rate and rhythm. No murmurs, rubs, or gallops appreciated. Respiratory: No tachypnea. Lungs clear to auscultation bilaterally. Gastrointestinal: Abdomen soft, mild tenderness palpation left lower quadrant, with normoactive bowel sounds. No rebound or guarding. Neurological: Awake. Alert. Nonfocal, nonlateralizing. Skin: No rash. Normal color. No pallor. Musculoskeletal: No pedal edema. Full range of motion extremities. Const Vital Signs: 09/05/21 12:30 09/05/21 12:32 09/05/21 13:32 Temperature 97.3 F L 97.3 F L 97.2 F L Temperature Source Temporal Temporal Temporal Pulse Rate 92 92 92 Respiratory Rate 16 16 16 Blood Pressure 129/87 H 129/87 H 129/87 H Blood Pressure Mean 101 101 101 Pulse Ox 99 99 99 Oxygen Delivery Method Room Air Room Air Room Air 09/05/21 14:30 Temperature 97.0 F L Temperature Source Oral Pulse Rate 90 Respiratory Rate 16 Blood Pressure 116/83 H Blood Pressure Mean 94 Pulse Ox Oxygen Delivery Method MDM MDM MDM Narrative Medical decision making narrative: Comprehensive work-up was pursued. Patient has had bilateral tubal ligation/bilateral tubal removal. However, I will still obtain a serum test along with CT imaging with IV contrast and basic laboratory work. She declined any analgesics here in the emergency department. She was administered a bolus of normal saline 1 L intravenously. Patient has a normal white count of 9.7, hemoglobin stable at 14.9. Her electrolyte panel is grossly unremarkable. Serum is negative. Urinalysis shows no evidence of infection. CT of the abdomen and pelvis does show diverticulitis of the mid descending colon, with new diverticulosis of the descending colon and sigmoid colon. At this point in time, her abdomen remains soft. She did not require pain medications here. She is given her first doses of Cipro and Flagyl here in the emergency department and a prescription written for the next 10 days. She will follow up with her primary care physician. Return instructions to the emergency department were reviewed. She was told of the risk of perforation and abscess formation and acknowledges an understanding and would still like to try outpatient treatment. I feel she be discharged safely home with follow-up. Disposition is discharged home in stable condition. Lab Data Attestation: I reviewed the patient's lab results. Labs: Laboratory Results - last 24 hr 09/05/21 09/05/21 09/05/21 13:20 13:20 13:20 WBC 9.7 RBC 4.61 Hgb 14.9 Hct 41.9 MCV 90.9 MCH 32.3 H MCHC 35.6 RDW Std Deviation 43.4 RDW Coeff of Domenic 13.0 Plt Count 283 MPV 11.2 Immature Gran % (Auto) 0.200 Neut % (Auto) 74.6 H Lymph % (Auto) 16.5 L [place] % (Auto) 7.3 Eos % (Auto) 1.0 Baso % (Auto) 0.4 Absolute Neuts (auto) 7.2 Absolute Lymphs (auto) 1.60 Nucleated RBC % 0 Sodium 139 Potassium 3.6 Chloride 104 Carbon Dioxide 28.0 Anion Gap 7 BUN 7 Creatinine 0.64 Estim Creat Clear Calc 94.85 Est GFR (MDRD) Af Amer 128 Est GFR (MDRD) Non-Af 106 BUN/Creatinine Ratio 10.9 Glucose 92 Calcium 9.1 Serum , Qual NEGATIVE Urine Color Urine Clarity Urine pH Ur Specific [place] Urine Protein Urine Glucose (UA) Urine Ketones Urine Occult Blood Urine Nitrite Urine Bilirubin Urine Urobilinogen Ur Leukocyte Esterase Urine RBC Urine WBC Ur Squamous Epith Cells Urine Bacteria Urine Mucus 09/05/21 13:20 WBC RBC Hgb Hct MCV MCH MCHC RDW Std Deviation RDW Coeff of Domenic Plt Count MPV Immature Gran % (Auto) Neut % (Auto) Lymph % (Auto) [place] % (Auto) Eos % (Auto) Baso % (Auto) Absolute Neuts (auto) Absolute Lymphs (auto) Nucleated RBC % Sodium Potassium Chloride Carbon Dioxide Anion Gap BUN Creatinine Estim Creat Clear Calc Est GFR (MDRD) Af Amer Est GFR (MDRD) Non-Af BUN/Creatinine Ratio Glucose Calcium Serum , Qual Urine Color Yellow Urine Clarity Clear Urine pH 6.5 Ur Specific [place] 1.010 Urine Protein Negative Urine Glucose (UA) Normal Urine Ketones 15 H Urine Occult Blood Negative Urine Nitrite Negative Urine Bilirubin Negative Urine Urobilinogen Normal Ur Leukocyte Esterase Negative Urine RBC 0 SEEN Urine WBC 0 SEEN Ur Squamous Epith Cells 0-5 SEEN Urine Bacteria 0 SEEN Urine Mucus 0 SEEN Radiography Diagnostic Testing: Clinical Impression(s) from Imaging Studies Abdomen/Pelvis CT 09/05/21 12:52 IMPRESSION: 1. Mild acute diverticulitis with intramural thickening in the left mid descending colon and diverticulosis along the sigmoid colon and descending colon. This is a new finding when compared to 01/21/2017. 2. No CT evidence of abscess or phlegmon in the abdomen and pelvis. 3. No other additional findings or changes. Electronically Signed: Valerio Limon MD at 14:19 EST , Discharge Plan Triage Chief Complaint: Abd Pain ED Provider: Valerio Glass Dx/Rx/DC Orders Clinical Impression: Diverticulitis Instructions: ED Diverticulitis Prescriptions: New ciprofloxacin HCl [Cipro] 500 mg tablet 500 mg PO BID Qty: 20 RF: 0 metronidazole 500 mg tablet 500 mg PO TID Qty: 30 RF: 0 No Action fluticasone propionate [Flonase Allergy Relief] 50 mcg/actuation s pray,suspension 2 spray INTRANASAL DAILY Qty: 9.9 RF: 0 fluvoxamine 50 mg tablet 50 mg PO RF: 0 buspirone 5 mg tablet 5 mg PO RF: 0 progesterone micronized 200 mg capsule 200 mg PO RF: 0 sumatriptan succinate 100 mg tablet 100 mg PO RF: 0 lorazepam 0.5 MG tablet 0.5 mg PO DAILY PRN PRN (Reason: Anxiety) RF: 0 Primary Care Provider: Annemarie Barrett Referrals: Annemarie Barrett DO [Primary Care Provider] -
[2021-09-05] MEDS: 0.9% Normal Saline 1,000 ML 1000 ML IV (13:19)
[2021-09-05 13:24] LABS: Bacteria 0 SEEN /hpf (None Seen); Mucous, Urine 0 SEEN /hpf (<or=2+); Red Blood Cells-Urine 0 SEEN /hpf (0-5); White Blood Cells 0 SEEN /hpf (0-5)
[2021-09-05 13:27] LABS: Color, Urine Yellow (Yellow); Glucose, Dipstick Normal (Normal); Ketone-Dipstick 15 mg/dl (Negative); Leukocyte Esterase-Dipstick Negative /ul (Negative); Nitrite-Dipstick Negative (Negative); Occult Blood-Urine Negative /ul (Negative); Protein-Dipstick Negative (Negative); Urine Bilirubin Dipstick Negative (Negative); Urine Clarity Clear (Clear); Urine Urobilinogen Normal (Normal); Urine pH 6.5 (5.0 - 8.0)
[2021-09-05 13:28] LABS: Absolute Neutrophil Count 7.2 X10^3/uL (2.0-7.7); Basophil# 0.04 X10^3/uL; Basophil% 0.4 % (0-1); Hematocrit 41.9 % (37-47); Hemoglobin 14.9 g/dL (12.0-15.0); Lymphocyte % 16.5 % (19-41); Mean Corp Hgb Conc 35.6 g/dL (32-36); Mean Corpuscular Hgb 32.3 pg (27.0-32.0); Mean Corpuscular Volume 90.9 fL (81-99); Mean Platelet Vol. 11.2 fl (6.2-12.0); Monocyte# 0.71 X10^3/uL; Monocyte% 7.3 % (0-10); NRBC Flagged by Analyzer 0 % (0-5); Neutrophil # 7.22 X10^3/uL (2.7-7.7); Neutrophil % 74.6 % (47-70); Platelet Count 283 K/mm3 (150-450); RBC Distribution Width SD 43.4 fl (35.1-43.9); Red Blood Count 4.61 M/mm3 (4.2-5.4); White Blood Count 9.7 K/mm3 (4.4-11.0)
[2021-09-05 13:32] VITALS: BP 129/87; PULSE 92; RESP 16; TEMP 36.2; O2SAT 99
[2021-09-05 13:33] LABS: Squamous Epithelial Cells - UA 0-5 SEEN /hpf (5-10)
[2021-09-05 13:34] LABS: Internal QC Validated? YES +Cl - CLEAR BKGD; Pregnancy, Serum, hCG Quali. NEGATIVE Negative
[2021-09-05 13:38] LABS: Anion Gap 7 (5-15); BUN 7 mg/dL (7-18); BUN/Creat Ratio 10.9 RATIO (10-20); Calcium,Total 9.1 mg/dL (8.5-10.1); Chloride 104 mmol/L (98-107); Creatinine, Serum 0.64 mg/dL (0.55-1.02); EST Glomerular Filtration Rate 106 mL/min (>60); Est Glom Filt Rate - Afr Amer 128 mL/min (>60); Estimated Creatinine Clearance 94.85 ml/min; Glucose 92 mg/dL (74-106); Potassium 3.6 mmol/L (3.5-5.1); Sodium Level 139 mmol/L (136-145)
[2021-09-05 14:30] VITALS: BP 116/83; PULSE 90; RESP 16; TEMP 36.1
[2021-09-05] MEDS: metroNIDAZOLE 500 MG Tablet PO (15:53)
[2021-09-05] MEDS: Ciprofloxacin 500 MG Tablet PO (15:53)
[2021-09-05 15:57] VITALS: PULSE 74; RESP 12
== END 2021-09-05 15:58 | disposition home or self-care (01) ==
LOC: ED 12:56
PROVIDERS: Emergency Provider Emergency Medicine; PCP Family Medicine; Visit Provider Emergency Medicine
DX: K57.92 Diverticulitis of intestine, part unspecified, without perforation or abscess without bleeding (principal)
CPT/HCPCS: 74177; 80048; 81001; 84703; 85025; 96360; 99282; J7030; Q9967; A4216

== ENCOUNTER 2021-09-16 11:47 | Outpatient (CLI) | payer BC, SELFPAY ==
--- NOTE | 2021-09-16 11:50 | BI_ITS ---
MAMMOGRAPHY - BILATERAL SCREENING REASON FOR EXAM: Female, 46 years old. Routine annual screening examination. PERTINENT HISTORY: Non-contributory. TECHNIQUE: Digital bilateral breast cristiane (3D mammographic acquisition) in the CC and MLO projections. 2-D mediolateral oblique (MLO) and craniocaudad (CC) views of both breasts were obtained. CAD: Full Field Digital Mammography with Computer Added Detection was performed. COMPARISON: Comparison is made with prior study dated 10/26/2017. FINDINGS: Breast Composition: The breasts are extremely dense, which lowers the sensitivity of mammography. There are no dominant masses or suspicious calcifications. Stable small benign-appearing bilateral axillary No other significant abnormalities are identified. There has been no significant change since the prior study. BI/SCRN MAMM (CAD)W/CRISTIANE BILAT IMPRESSION: Stable bilateral screening mammogram. Yearly follow-up mammogram recommended. (A) ASSESSMENT CATEGORY: BIRADS Category 2: Benign. A letter regarding these results will be sent to the patient by the facility within 30 days. Approximately 10% of breast cancers are not detected by mammography. A normal mammogram should not delay biopsy of a clinically suspicious abnormality. [id number] Electronically Signed: Javier Regan MD at 12:48 EST ,
== END 2021-09-16 23:59 | disposition home or self-care (01) ==
LOC: OPBI 11:48
PROVIDERS: PCP Family Medicine; Visit Provider Family Medicine
DX: Z12.31 Encounter for screening mammogram for malignant neoplasm of breast (principal)
CPT/HCPCS: 77063; 77067

== ENCOUNTER 2021-10-27 08:17 | Day surgery (SDC) | payer BC, SELFPAY ==
[2021-10-27] VITALS (7 sets, daily range): BP systolic 100–129; BP diastolic 58–88; PULSE 73–96; RESP 16–18; TEMP 36.5–36.8; O2SAT 92–99; BMI 29.4
--- NOTE | 2021-10-27 08:38 | HP.PCM_ITS ---
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 Is patient in pain?: No Allergies No Known Allergies Allergy (Verified 09/29/21 13:50) Medications lorazepam 0.5 mg PO DAILY PRN PRN 10/05/17 [History Confirmed 09/29/21] fluticasone propionate 50 mcg/actuation nasal spray,suspension 2 spray INTRANASAL DAILY #9.9 g 04/02/18 [Rx Confirmed 09/29/21] fluvoxamine 50 mg tablet 50 mg PO tab 01/26/21 [History Confirmed 09/29/21] buspirone 5 mg tablet 5 mg PO BID tab 09/29/21 [History Confirmed 09/29/21] PFS Medical History History of diverticulitis History of seizures (in her 20s) Surgical History (Updated 09/29/21 @ 13:44 by Guerda Tuesday) History of Hx of wisdom tooth extraction Family History (Updated 09/29/21 @ 13:49 by Guerda Tuesday) Mother Arthritis Cancer Hypertension High cholesterol Father Cancer Arthritis Sister High cholesterol Hypertension Social History (Updated 09/29/21 @ 13:50 by Guerda Tuesday) Smoking Status: Never smoker alcohol intake: never substance use type: does not use HPI HPI HPI: WILLIAMS GOLDEN, is a 46 F who presents to the office today for surgical consultation regarding abdominal pain. The patient is referred by Dr. Annemarie Barrett and a written copy of my surgical consult recommendations will return to her. Her last colonoscopy was performed 2011. Her brother had colon polyps and mother had polyps as well. She was recently seen in the emergency room September 05, 2021 for acute diverticulitis. She completed her antibiotics September 16, 2021. The patient now is taking probiotics. This is now the fourth episode that she has had over 10 years. Her first episode did require hospitalization and IV antibiotics. This occasion did not. She states that the left lower quadrant abdominal pain is completely resolved. This occurred about a month ago I think its onset. Just prior to the pain she had 5 to 7 days of what she thought was constipation. It is not known whether the constipation actually was reflection of the start of her diverticulitis or whether perhaps could have been contributory. She denies current fever chills or sweats. She otherwise enjoys good health. She does not have a daily exercise routine. ROS General General: No weight change, appetite, fatigue, colon cancer, breast cancer or weakness HEENT HEENT: No difficulty swallowing, eye injury, eye surgery, swollen glands or hoarseness Endo Endocrine: No thyroid disease, diabetes mellitus, thyroid cancer, Hair loss, heat intolerance or cold intolerance Skin Skin: No rash or changing moles Musc Musculoskeletal: No back problems, arthritis, rheumatoid arthritis, gout or joint pain Cardio Cardiovascular: No murmur, pacemaker, heart disease, atrial fibrillation, high blood pressure, heart attack, heart stent, palpitations, shortness of breat with exertion or chest pain Psych Psychiatric: Yes depression and anxiety; No hearing voices Resp Respiratory: No shortness of breath, No sleep apnea, No cough, No COPD, No asthma, No emphysema and No wheezing Gastro Gastrointestinal: No abdominal pain, No nausea or vomiting, No diarrhea, No constipation, No blood in stool, No acid reflux, No hemorrhoids, No ulcers, No gallbladder problem and No black,tarry stools Cristhian Hematologic: No blood thinners, No blood disorders, No bleeding, No anemia and No blood clots Neuro Neurologic: No system reviewed and no additional complaints, except as documented, No as per HPI, No abnormal gait, No abnormal hearing, No abnormal movements, No abnormal speech, No behavioral changes, No burning sensations, No confusion, No convulsions, No disequilibrium, No dizziness, No localized weakness, No frequent falls, No headache(s), No lack of coordination, No loss of vision, No memory loss, No numbness, No other visual disturbances, No radicular pain, No restless legs, No sensory deficit, No syncope, No tingling, No tremor(s), No weakness and No other Exam Const General: cooperative, healthy appearing and comfortable [facility] Head: normal to inspection Eyes General: appearance normal, both eyes and all related structures Resp Effort & Inspection: normal respiratory effort Auscultation: clear to auscultation bilaterally Cardio Rate: regular rate Rhythm: regular rhythm GI Palpation: soft and no hepatosplenomegaly Auscultation: normal bowel sounds Rectal Exam: No tenderness Musc Cervical Spine: normal cervical lordosis Neuro General: patient alert, patient awake and patient oriented x3 Extrem General: no calf tenderness Psych Appearance: grossly normal Assessment and Plan Assessment and Plan (1) Abdominal pain: Qualifiers: Abdominal location: left lower quadrant Qualified Code(s): R10.32 - Left lower quadrant pain (2) Diverticulitis: Status: Chronic Plan - Dr. Trevor Perales MD: On review the patient it seems now to correlate that her left lower quadrant abdominal pain and CT imaging and emergency room visit all correlate with a bout of recurrent diverticulitis. The patient reminds me that I assisted her with a colonoscopy 10 years ago demonstrating pancolonic diverticulosis. She has only required 1 hospitalization and she has had 4 bouts of diverticulitis over the past 10 years. She currently is feeling well and is asymptomatic. I do recommend to her colonoscopy with possible biopsy or polypectomy as indicated. We will allow for some further resolution and schedule that within the next 2 to 4 weeks. We did take time today to discuss potential trigger foods of which she does not appear to have any. We discussed routine daily exercise routine. The patient has placed her on probiotics which for short period of time would appear reasonable. We discussed additional fiber supplementation. She has had an opportunity to ask and have questions answered. Very much appreciate the kind opportunity of assisting with her surgical care. Copy: Dr. Annemarie Perales M.D., F.A.C.S. I have re-examined the patient. There are no clinical changes since date of exam. Trevor Perales M.D., F.A.C.S.
[2021-10-27] MEDS: Lactated Ringers 1,000 ML 15 ML IV (09:02)
--- NOTE | 2021-10-27 10:06 | OP.COLON_ITS ---
Patient Name: Amy Asencio Procedure Date: 10/27/2021 9:41 AM Date of : 1975 Age: 46 Procedure: Colonoscopy Indications: Abdominal pain in the left lower quadrant Providers: Trevor Perales MD Medicines: See the Anesthesia note for documentation of the administered medications Patient Profile: Last Colonoscopy: 2011. Complications: No immediate complications. Procedure: Pre-Anesthesia Assessment: - Prior to the procedure, a History and Physical was performed, and patient medications and allergies were reviewed. The patient's tolerance of previous anesthesia was also reviewed. The risks and benefits of the procedure and the sedation options and risks were discussed with the patient. All questions were answered, and informed consent was obtained. Prior Anticoagulants: The patient has taken no previous anticoagulant or antiplatelet agents. ASA Grade Assessment: II - A patient with mild systemic disease. After reviewing the risks and benefits, the patient was deemed in satisfactory condition to undergo the procedure. After I obtained informed consent, the scope was passed under direct vision. Throughout the procedure, the patient's blood pressure, pulse, and oxygen saturations were monitored continuously. The pediatric colonoscope was introduced through the anus and advanced to the cecum, identified by appendiceal orifice and ileocecal valve. The colonoscopy was performed without difficulty. The patient tolerated the procedure well. The quality of the bowel preparation was good. The ileocecal valve and the appendiceal orifice were photographed. Scope In: 9:49:21 AM Scope Withdrawal Time 0 hours 7 minutes 23 seconds Scope Out: 10:01:49 AM Total Procedure Duration Time 0 hours 12 minutes 28 seconds Findings: Hemorrhoids were found on perianal exam. Multiple diverticula were found in the sigmoid colon and descending colon. The exam was otherwise without abnormality. Impression: - Hemorrhoids found on perianal exam. - Diverticulosis in the sigmoid colon and in the descending colon. - The examination was otherwise normal. - No specimens collected. Recommendation: - Discharge patient to home. - Resume previous diet. - Continue present medications. - Repeat colonoscopy in 10 years for screening purposes. Procedure Code(s): --- Professional --- 05508, Colonoscopy, flexible; diagnostic, including collection of specimen(s) by brushing or washing, when performed (separate procedure) Diagnosis Code(s): --- Professional --- K64.9, Unspecified hemorrhoids R10.32, Left lower quadrant pain K57.30, Diverticulosis of large intestine without perforation or abscess without bleeding CPT copyright 2017 [employer]. All rights reserved. The codes documented in this report are preliminary and upon needlemaker review may be revised to meet current compliance requirements. Trevor Perales MD 10/27/2021 10:06:33 AM This report has been signed electronically. Number of Addenda: 0 Note Initiated On: 10/27/2021 9:41 AM
--- NOTE | 2021-10-27 10:08 | OP.CCLET_ITS ---
10/27/2021 Annemarie Barrett [address] [place] [address] Re : Colonoscopy procedure for Amy Asencio Dear Dr. Barrett This procedure was performed on Wednesday, October 27, 2021. My impressions and recommendations are as follows: Impressions : - Hemorrhoids found on perianal exam. - Diverticulosis in the sigmoid colon and in the descending colon. - The examination was otherwise normal. - No specimens collected. Recommendations : - Discharge patient to home. - Resume previous diet. - Continue present medications. - Repeat colonoscopy in 10 years for screening purposes. My findings are described in the full procedure note, which is enclosed. If I can be of further assistance, please feel free to contact me at Doctor phone number(s): Work: . Sincerely, Trevor Perales MD 10/27/2021 10:06:33 AM This report has been signed electronically.
== END 2021-10-27 10:41 | disposition home or self-care (01) ==
LOC: EN 08:18 → AC 08:18
PROVIDERS: PCP Family Medicine; Referring Provider Family Medicine; Visit Provider Surgery
PROC: 0DJD8ZZ Inspection of Lower Intestinal Tract, Via Natural or Artificial Opening Endoscopic (ICD-10-PCS; CPT 45378; principal; 2021-10-27 09:10)
DX: K64.9 Unspecified hemorrhoids (principal); K57.30 Diverticulosis of large intestine without perforation or abscess without bleeding; F41.9 Anxiety disorder, unspecified; F32.9 Major depressive disorder, single episode, unspecified; G25.81 Restless legs syndrome; Z87.19 Personal history of other diseases of the digestive system; Z86.16 Personal history of COVID-19; Z79.899 Other long term (current) drug therapy; Z20.822 Contact with and (suspected) exposure to COVID-19
CPT/HCPCS: 45378; 87426; C9803; J7120

== ENCOUNTER → 2022-09-08 | Outpatient (CLI) | payer BC, SELFPAY ==
[2022-09-08 12:25] LABS: Absolute Lymphocyte Count 1.83 X10^3/uL (0.83-4.51); Absolute Neutrophil Count 4.7 X10^3/uL (2.0-7.7); Basophil# 0.05 X10^3/uL; Basophil% 0.7 % (0-1); Eosinophil# 0.11 X10^3/uL; Eosinophils% 1.5 % (0-5); Hematocrit 43.7 % (37-47); Hemoglobin 14.3 g/dL (12.0-15.0); Lymphocyte # 1.83 X10^3/ul (0.83-4.51); Lymphocyte % 25.1 % (19-41); Mean Corp Hgb Conc 32.7 g/dL (32-36); Mean Corpuscular Hgb 30.1 pg (27.0-32.0); Mean Platelet Vol. 11.6 fl (6.2-12.0); Monocyte# 0.57 X10^3/uL; Monocyte% 7.8 % (0-10); NRBC Flagged by Analyzer 0 % (0-5); Neutrophil # 4.73 X10^3/uL (2.7-7.7); Neutrophil % 64.8 % (47-70); Platelet Count 259 K/mm3 (150-450); RBC Distribution Width CV 13.2 % (11.6-14.6); RBC Distribution Width SD 44.9 fl (35.1-43.9); Red Blood Count 4.75 M/mm3 (4.2-5.4); White Blood Count 7.3 K/mm3 (4.4-11.0)
[2022-09-08 12:46] LABS: AST(SGOT) 11 U/L (15-37); Alanine Aminotransfer ALT/SGPT 24 U/L (13-56); Albumin, Serum 3.6 g/dL (3.2-5.0); Alkaline Phosphatase 64 U/L (45-117); Anion Gap 7 (5-15); BUN 13 mg/dL (7-18); BUN/Creat Ratio 20.4 RATIO (10-20); Calcium,Total 8.9 mg/dL (8.5-10.1); Chloride 106 mmol/L (98-107); Cholesterol 239 mg/dL (200); Creatinine, Serum 0.64 mg/dL (0.55-1.02); EST Glomerular Filtration Rate 106 mL/min (>60); Est Glom Filt Rate - Afr Amer 128 mL/min (>60); Globulin 3.6 g/dL (2.2-4.2); Glucose 93 mg/dL (74-106); High Density Lipoprotein 47 mg/dL; Potassium 3.8 mmol/L (3.5-5.1); Protein, Total 7.2 g/dL (6.4-8.2); Sodium Level 139 mmol/L (136-145); Triglycerides 210 mg/dL; Very Low Density Lipoprotein 42 mg/dL (5-40)
== END | disposition home or self-care (01) ==
LOC: BFHLAB 10:37
PROVIDERS: PCP Family Medicine; Visit Provider Family Medicine
DX: E78.5 Hyperlipidemia, unspecified (principal); Z51.81 Encounter for therapeutic drug level monitoring; R10.9 Unspecified abdominal pain
CPT/HCPCS: 36415; 80053; 80061; 85025

== ENCOUNTER → 2022-09-21 | Outpatient (CLI) | payer BC, SELFPAY ==
--- NOTE | 2022-09-21 10:13 | US_ITS ---
STUDY: ABDOMINAL ULTRASOUND - RIGHT UPPER QUADRANT REASON FOR VISIT: Female, 47 years old RUQ PAIN TECHNIQUE: Ultrasound evaluation of the right upper quadrant was performed with real-time and static sorensen-scale imaging. TECHNICAL QUALITY: Adequate. COMPARISON: None. FINDINGS: Liver: The liver measures 14.6 cm. There is increased echogenicity consistent with fatty infiltration. The bile ducts are within normal limits. There is hepatic color flow. The direction of portal flow is hepatopetal. There is no demonstrated mass lesion. Gallbladder: Normal distended gallbladder. The gallbladder wall measures 1.2 mm. There is a negative sonographic Crawford''s sign. There is no pericholecystic fluid. There are no gallstones. Common Bile Duct (C.B.D.): The common bile duct measures 5.8 mm. Pancreas: Normal size of the head, body and tail of the pancreas. There is normal echogenicity of the pancreas. There is no demonstrated pancreatic mass or cyst. Right Kidney: Normal size of the right kidney. The right kidney measures 12.0 x 4.2 x 5.3 cm. Normal renal cortex. The right cortex measures 1.1 cm. There is no demonstrated renal mass or cyst. There is no right hydronephrosis. US/Abdomen Limited IMPRESSION: Fatty liver, no discrete lesion Electronically Signed: Samir Ji MD at 10:58 EDT ,
== END | disposition home or self-care (01) ==
LOC: US 10:12
PROVIDERS: PCP Family Medicine; Referring Provider Family Medicine; Visit Provider Family Medicine
DX: R10.11 Right upper quadrant pain (principal)
CPT/HCPCS: 76705

== ENCOUNTER → 2022-10-05 | Outpatient (CLI) | payer BC, SELFPAY ==
--- NOTE | 2022-10-05 10:04 | BI_ITS ---
MAMMOGRAPHY - BILATERAL SCREENING REASON FOR EXAM: Female, 47 years old. Routine annual screening examination. PERTINENT HISTORY: Non-contributory. TECHNIQUE: Digital bilateral breast cristiane (3D mammographic acquisition) in the CC and MLO projections. 2-D mediolateral oblique (MLO) and craniocaudad (CC) views of both breasts were obtained. CAD: Full Field Digital Mammography with Computer Added Detection was performed. COMPARISON: Comparison is made with prior study dated September 16, 2021 and October 26, 2017. FINDINGS: Breast Composition: The breasts are extremely dense, which lowers the sensitivity of mammography. There are no dominant masses or suspicious calcifications. Stable small benign-appearing bilateral axillary lymph nodes. No other significant abnormalities are identified. There has been no significant change since the prior study. BI/SCRN MAMM (CAD)W/CRISTIANE BILAT IMPRESSION: Stable bilateral screening mammogram. Yearly follow-up mammogram recommended. (A) ASSESSMENT CATEGORY: BIRADS Category 2: Benign. A letter regarding these results will be sent to the patient by the facility within 30 days. Approximately 10% of breast cancers are not detected by mammography. A normal mammogram should not delay biopsy of a clinically suspicious abnormality. [id number] Electronically Signed: Javier Regan MD at 13:03 EDT ,
== END | disposition home or self-care (01) ==
LOC: OPBI 10:02
PROVIDERS: PCP Family Medicine; Visit Provider Student in an Organized Health Care Education/Training Program
DX: Z12.31 Encounter for screening mammogram for malignant neoplasm of breast (principal)
CPT/HCPCS: 77063; 77067

== ENCOUNTER → 2022-12-31 | Outpatient (CLI) | payer BC, SELFPAY ==
--- NOTE | 2022-12-31 16:45 | RAD_ITS ---
HISTORY: ABDOMINAL PAIN. TECHNIQUE: XR Abdomen W/ Decub and/or Erect Views. COMPARISON: CT 09/05/2021. FINDINGS: BOWEL GAS PATTERN: No dilated bowel loops identified. FREE AIR: None seen on upright view. CALCIFICATIONS: Small pelvic phleboliths observed. BONES: Unremarkable. SOFT TISSUES: Lung bases clear. RAD/Abd Inc Decub and/or Erect IMPRESSION: Non-obstructive bowel gas pattern. Electronically Signed: Jenni Ball MD at 14:18 EDT ,
== END | disposition home or self-care (01) ==
LOC: MTRAD 16:43
PROVIDERS: PCP Family Medicine; Referring Provider Nurse Practitioner Family; Visit Provider Nurse Practitioner Family
DX: R10.9 Unspecified abdominal pain (principal)
CPT/HCPCS: 74019

== ENCOUNTER → 2023-03-23 | Outpatient (CLI) | payer BC, SELFPAY ==
[2023-03-23 10:23] LABS: Bacteria 0 SEEN /hpf (None Seen); Mucous, Urine 0 SEEN /hpf (<or=2+); Red Blood Cells-Urine 0 SEEN /hpf (0-5); Squamous Epithelial Cells - UA 0 SEEN /hpf (5-10); White Blood Cells 0 SEEN /hpf (0-5)
[2023-03-23 11:29] LABS: Color, Urine Yellow (Yellow); Glucose, Dipstick Normal (Normal); Ketone-Dipstick 50 mg/dl (Negative); Leukocyte Esterase-Dipstick Negative /ul (Negative); Nitrite-Dipstick Negative (Negative); Occult Blood-Urine Negative /ul (Negative); Protein-Dipstick 15 mg/dl (Negative); Specific Gravity, Urine 1.015 (1.002-1.030); Urine Bilirubin Dipstick Negative (Negative); Urine Clarity Sl. Cloudy (Clear); Urine Urobilinogen Normal (Normal)
== END | disposition home or self-care (01) ==
LOC: LABSPEC 10:18
PROVIDERS: PCP Family Medicine; Referring Provider Physician Assistant; Visit Provider Physician Assistant
DX: R30.0 Dysuria (principal)
CPT/HCPCS: 81001; 87086

== ENCOUNTER → 2023-04-13 | Outpatient (CLI) | payer BC, SELFPAY ==
[2023-04-13 12:33] LABS: Erythrocyte Sedimentation Rate 15 mm/hr (0-30)
[2023-04-13 12:37] LABS: Absolute Lymphocyte Count 1.34 X10^3/uL (0.83-4.51); Absolute Neutrophil Count 6.5 X10^3/uL (2.0-7.7); Basophil# 0.04 X10^3/uL; Basophil% 0.5 % (0-1); Eosinophils% 1.2 % (0-5); Hematocrit 44.1 % (37-47); Hemoglobin 14.2 g/dL (12.0-15.0); Lymphocyte # 1.34 X10^3/ul (0.83-4.51); Lymphocyte % 15.8 % (19-41); Mean Corp Hgb Conc 32.2 g/dL (32-36); Mean Corpuscular Hgb 29.9 pg (27.0-32.0); Mean Corpuscular Volume 92.8 fL (81-99); Mean Platelet Vol. 11.1 fl (6.2-12.0); Monocyte# 0.42 X10^3/uL; NRBC Flagged by Analyzer 0 % (0-5); Neutrophil # 6.54 X10^3/uL (2.7-7.7); Platelet Count 333 K/mm3 (150-450); RBC Distribution Width CV 13.7 % (11.6-14.6); RBC Distribution Width SD 46.6 fl (35.1-43.9); Red Blood Count 4.75 M/mm3 (4.2-5.4); White Blood Count 8.5 K/mm3 (4.4-11.0)
[2023-04-13 13:24] LABS: AST(SGOT) 20 U/L (15-37); Alanine Aminotransfer ALT/SGPT 35 U/L (13-56); Albumin, Serum 3.6 g/dL (3.2-5.0); Alkaline Phosphatase 83 U/L (45-117); Anion Gap 6 (5-15); BUN 11 mg/dL (7-18); BUN/Creat Ratio 16.3 RATIO (10-20); CRP < 2.90 mg/L (0.0-3.0); Calcium,Total 9.1 mg/dL (8.5-10.1); Chloride 105 mmol/L (98-107); Creatinine, Serum 0.67 mg/dL (0.55-1.02); EST Glomerular Filtration Rate 99 mL/min (>60); Est Glom Filt Rate - Afr Amer 120 mL/min (>60); Globulin 3.7 g/dL (2.2-4.2); Glucose 84 mg/dL (74-106); Potassium 3.9 mmol/L (3.5-5.1); Protein, Total 7.3 g/dL (6.4-8.2); Sodium Level 137 mmol/L (136-145)
[2023-04-14 13:07] LABS: ANTINUCLEAR ANTIBODIES DIRECT Negative (Negative)
== END | disposition home or self-care (01) ==
LOC: BFHLAB 10:56
PROVIDERS: PCP Nurse Practitioner Family; Referring Provider Nurse Practitioner Family; Visit Provider Nurse Practitioner Family
DX: L30.9 Dermatitis, unspecified (principal)
CPT/HCPCS: 36415; 80053; 85025; 85652; 86038; 86140; 86225; 86235

== ENCOUNTER → 2023-10-26 | Outpatient (CLI) | payer BC, SELFPAY ==
[2023-10-26 12:19] LABS: Absolute Lymphocyte Count 1.11 X10^3/uL (0.83-4.51); Basophil# 0.05 X10^3/uL; Basophil% 0.6 % (0-1); Eosinophil# 0.05 X10^3/uL; Eosinophils% 0.6 % (0-5); Hematocrit 42.6 % (37-47); Hemoglobin 14.2 g/dL (12.0-15.0); Lymphocyte # 1.11 X10^3/ul (0.83-4.51); Lymphocyte % 12.9 % (19-41); Mean Corp Hgb Conc 33.3 g/dL (32-36); Mean Corpuscular Hgb 30.2 pg (27.0-32.0); Mean Corpuscular Volume 90.6 fL (81-99); Mean Platelet Vol. 11.3 fl (6.2-12.0); Monocyte# 0.34 X10^3/uL; NRBC Flagged by Analyzer 0 % (0-5); Neutrophil # 7.02 X10^3/uL (2.7-7.7); Neutrophil % 81.6 % (47-70); Platelet Count 287 K/mm3 (150-450); RBC Distribution Width CV 13.9 % (11.6-14.6); RBC Distribution Width SD 46.1 fl (35.1-43.9); White Blood Count 8.6 K/mm3 (4.4-11.0)
[2023-10-26 12:41] LABS: AST(SGOT) 13 U/L (15-37); Alanine Aminotransfer ALT/SGPT 20 U/L (13-56); Albumin, Serum 3.7 g/dL (3.2-5.0); Alkaline Phosphatase 57 U/L (45-117); Anion Gap 7 (5-15); BUN 10 mg/dL (7-18); BUN/Creat Ratio 14.3 RATIO (10-20); Calcium,Total 9.1 mg/dL (8.5-10.1); Chloride 109 mmol/L (98-107); Cholesterol 230 mg/dL (200); EST Glomerular Filtration Rate 95 mL/min (>60); Est Glom Filt Rate - Afr Amer 115 mL/min (>60); Free T3 2.9 pg/mL (2.18-3.98); Globulin 3.6 g/dL (2.2-4.2); Glucose 103 mg/dL (74-106); High Density Lipoprotein 36 mg/dL; Protein, Total 7.3 g/dL (6.4-8.2); Sodium Level 139 mmol/L (136-145); T4 Free Direct 1.08 ng/dL (0.76-1.46); Thyroid Stim Hormone (TSH) 0.92 uIU/mL (0.358-3.74); Triglycerides 221 mg/dL; Very Low Density Lipoprotein 44 mg/dL (5-40)
[2023-10-27 16:10] LABS: Thyroglobulin Antibody < 1.0 IU/mL (0.0-0.9); Thyroid Peroxidase AB < 9 IU/mL (0-34)
== END | disposition home or self-care (01) ==
LOC: BFHLAB 09:56
PROVIDERS: PCP Family Medicine; Referring Provider Family Medicine; Visit Provider Family Medicine
DX: Z00.00 Encounter for general adult medical examination without abnormal findings (principal); I10 Essential (primary) hypertension; R00.0 Tachycardia, unspecified
CPT/HCPCS: 36415; 80053; 80061; 84439; 84443; 84481; 85025; 86376; 86800

== ENCOUNTER 2024-02-06 06:51 | Observation (INO) | payer BC, SELFPAY ==
[2024-02-06] VITALS (8 sets, daily range): BP systolic 120–133; BP diastolic 73–83; PULSE 69–82; RESP 16–19; TEMP 36.2–37.1; O2SAT 95–98; BMI 30.1
--- NOTE | 2024-02-06 07:02 | CT_ITS ---
STUDY: CT ABDOMEN AND PELVIS WITH CONTRAST REASON FOR EXAM: Female, 48 years old. LLQ pain, hx of diverticulitis RADIATION DOSAGE (If Supplied By Facility): CTDIvol = ( 9.23 ) mGy, DLP = ( 557.01 ) mGycm TECHNIQUE: IV 100mL Isovue-370 was administered. Transaxial images were obtained from the dome of the diaphragm to the symphysis pubis Multiplanar coronal and sagittal images were reformatted. The protocol utilizes one or more of the following dose reduction techniques: automated exposure control, adjustment of mA and/or kV according to patient size,and/or use of iterative reconstruction technique. COMPARISON: Prior study dated: 09/05/2021 FINDINGS: The visualized lung bases are unremarkable. The visualized portions of the heart are within normal limits. Dense breasts better evaluated by mammography. Borderline to mild hepatomegaly. Normal gallbladder and extrahepatic biliary system. Normal spleen. Normal pancreas. Normal bilateral adrenal glands. Normal visualized stomach. Normal in caliber small bowel loops. Sigmoid and descending colon diverticulosis. Focal area of thickening of the ascending colon with pericolonic stranding consistent with acute diverticulitis. No evidence of free air or drainable abscess. The appendix is visualized and appears normal. Normal abdominal aorta. No retroperitoneal adenopathy. 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 Normal right kidney. Normal left kidney. Normal urinary bladder. No pelvic mass. Very small umbilical hernia containing fat. No demonstrated acute osseous changes. CT/Abdomen/Pelvis W IV Cont ONLY IMPRESSION: 1. Acute diverticulitis of the descending colon. 2. No evidence of free air or drainable abscess. Electronically Signed: Aries Miner MD at 8:41 EDT ,
--- NOTE | 2024-02-06 07:05 | EX.ED.DYSGE1 ---
HPI History of Present Illness Chief Complaint: Abd Pain Narrative Narrative: Patient is a 48-year-old female with a past medical history of diverticulosis, hypertension, GERD, depression who presented to the emergency department chief complaint of concern for diverticulitis. Patient states that yesterday morning she noted that she developed some discomfort in her abdomen that progressively worsened throughout the night prompting her to come here for further evaluation management. States that she does have a colonoscopy within the last year and believes that this was normal. Patient rates her pain a 10 out of 10 on exam currently. Patient also admits to some nausea but denies vomiting or diarrhea. [facility] Medical History Ketonuria Urinary tract infection Contact with and (suspected) exposure to other viral communicable diseases COVID Wears glasses Depression Anxiety Restless legs Migraine headache History of ulceration Non-smoker History of diverticulitis History of seizures (in her 20s) Home Medications ?Medication ?Instructions ?Recorded ?Last Taken ?Type lorazepam 0.5 mg tablet 0.5 mg PO BID PRN Anxiety 10/05/17 Unknown History fluvoxamine 50 mg tablet 50 mg PO QHS depression 01/26/21 Unknown History buspirone 5 mg tablet 5 mg PO DAILY anxiety 09/29/21 Unknown History fluticasone propionate 50 2 spray intranasal DAILY PRN 10/23/21 Unknown History mcg/actuation nasal Congestion spray,suspension (Flonase Allergy Relief) levonorgestrel-ethinyl estradiol 1 tab PO DAILY control 02/06/24 Unknown History 0.1 mg-20 mcg tablet (Vienva) metoprolol succinate 25 mg 25 mg PO QHS blood pressure 02/06/24 Unknown History tablet,extended release 24 hr Allergy/AdvReac Type Severity Reaction Status Date / Time No Known Allergies Allergy Verified 01/28/24 10:21 Family History Mother Arthritis Cancer Hypertension High cholesterol Father Cancer Arthritis Sister High cholesterol Hypertension Surgical History History of colonoscopy History of bilateral salpingectomy History of tubal ligation Hx of wisdom tooth extraction History of Social History Smoking Status: Never smoker alcohol intake: never substance use type: does not use ROS ROS ED ROS Narrative Constitutional: Denies fevers, chills, headaches, Hermilo, dizziness Eyes: Denies change in vision double vision blurry vision Cardiovascular: Denies chest pain or palpitations Respiratory: Denies coughing wheezing shortness of breath Abdomen: Complains of abdominal pain and nausea as noted above denies vomiting diarrhea denies dark tarry stools or blood in the stool : Denies any painful urination, hematuria polyuria Neurological: Denies numbness, weakness, tingling Musculoskeletal: Denies back pain Skin: Denies rashes or lesions EXAM Physical Exam Narrative Exam Narrative: General: Patient lying in bed rest comfortably did not appear to be in acute distress Head: Atraumatic, normocephalic Eyes: Pupils equal round reactive to light bilaterally, extraocular muscles intact bilaterally, no conjunctival injection noted Neck: Soft, supple, trachea midline Cardiovascular: Regular rate and rhythm no murmurs gallops rubs noted Respiratory: Clear to auscultation bilaterally Abdomen: Soft, nondistended, mild tenderness palpation epigastric region in the left lower quadrant no rebound or guarding on exam, bowel sounds present x 4 extremities: No pedal edema neuroexam +5/5 strength noted in the bilateral upper lower extremities Neurological: Patient following commands knew that she is [facility] year is 2023 Skin: Warm, dry, intact Const Vital Signs: 02/06/24 06:52 02/06/24 08:52 02/06/24 10:00 Temperature 97.2 F L Temperature Source Temporal Pulse Rate 81 77 77 Respiratory Rate 16 17 18 Blood Pressure 133/83 H 121/78 H 120/73 Blood Pressure Mean 99 92 88 Pulse Ox 95 98 98 Oxygen Delivery Method Room Air Room Air Room Air 02/06/24 10:12 Temperature 98 F Temperature Source Pulse Rate 74 Respiratory Rate 19 H Blood Pressure 123/77 H Blood Pressure Mean 92 Pulse Ox 97 Oxygen Delivery Method MDM MDM MDM Narrative Medical decision making narrative: Patient is a 48-year-old female who presented to the emergency department the chief complaint of abdominal pain and concern for diverticulitis. Patient was a workup performed here on the differential diagnose includes but limited to diverticulitis, pancreatitis, appendicitis, UTI. Once workup is obtained and reviewed she will be reevaluated. Patient be given IV fluids, morphine and Zofran. Patient CBC reviewed and showed evidence of leukocytosis with a white blood count of 13,000, hemoglobin 13.9, platelet count normal at 225. Patient sodium normal 136, potassium normal at 4, creatinine normal at 0.68. Patient's total bilirubin normal at 0.40, AST and ALT were 9 and 19 respectively. Patient lipase normal at 21, urinalysis did not reveal any evidence of infection. Patient's CT abdomen pelvis with IV contrast was reviewed and showed acute diverticulitis of the descending colon no evidence of free air or drainable abscess noted. Reevaluation of the patient after second dose of pain medication she states that she is still having significant amount of pain even when trying to get up and ambulate therefore will discuss case with hospitalist Dr. Villalpando for admission. Patient be given oral Augmentin. Did discuss case with hospitalist who accept patient for admission. Patient is agreeable to this plan all question concerns were answered bedside. Lab Data Labs: Laboratory Results - last 24 hr 02/06/24 02/06/24 07:16 07:55 WBC 13.1 H RBC 4.58 Hgb 13.9 Hct 41.5 MCV 90.6 MCH 30.3 MCHC 33.5 RDW Std Deviation 44.7 H RDW Coeff of Domenic 13.4 Plt Count 225 MPV 10.7 Immature Gran % (Auto) 0.500 Neut % (Auto) 80.0 H Lymph % (Auto) 11.1 L [place] % (Auto) 6.9 Eos % (Auto) 1.1 Baso % (Auto) 0.4 Absolute Neuts (auto) 10.5 H Absolute Lymphs (auto) 1.45 Nucleated RBC % 0 Sodium 136 Potassium 4.0 Chloride 108 H Carbon Dioxide 25.0 Anion Gap 3 L BUN 9 Creatinine 0.68 Estim Creat Clear Calc 103.34 Est GFR (MDRD) Af Amer 118 Est GFR (MDRD) Non-Af 98 BUN/Creatinine Ratio 13.2 Glucose 116 H Calcium 8.6 Total Bilirubin 0.40 AST 9 L ALT 19 Alkaline Phosphatase 67 Total Protein 7.0 Albumin 3.3 Globulin 3.7 Albumin/Globulin Ratio 0.9 Lipase 21 Urine Color Yellow Urine Clarity Sl. Cloudy Urine pH 7.0 Ur Specific [place] 1.010 Urine Protein Negative Urine Glucose (UA) Normal Urine Ketones Negative Urine Occult Blood Negative Urine Nitrite Negative Urine Bilirubin Negative Urine Urobilinogen Normal Ur Leukocyte Esterase Negative Urine RBC 0-5 SEEN Urine WBC 0-5 SEEN Ur Squamous Epith Cells 0-5 SEEN Urine Bacteria 0 SEEN Urine Mucus 0 SEEN Radiography Diagnostic Testing: Clinical Impression(s) from Imaging Studies Abdomen/Pelvis CT 02/06/24 07:02 IMPRESSION: 1. Acute diverticulitis of the descending colon. 2. No evidence of free air or drainable abscess. Electronically Signed: Aries Miner MD at 8:41 EDT , Discharge Plan Triage Chief Complaint: Abd Pain ED Provider: Noel Marcial Dx/Rx/DC Orders Prescriptions: No Action fluvoxamine 50 mg tablet 50 mg PO QHS buspirone 5 mg tablet 5 mg PO DAILY lorazepam 0.5 MG tablet 0.5 mg PO BID PRN (Reason: Anxiety) fluticasone propionate [Flonase Allergy Relief] 50 mcg/actuation spray,suspension 2 spray INTRANASAL DAILY PRN (Reason: Congestion) Rx Instructions: administer into each nostril metoprolol succinate 25 mg tablet extended release 24 hr 25 mg PO QHS levonorgestrel-ethinyl estrad [Vienva] 0.1-20 mg-mcg tablet 1 tab PO DAILY Primary Care Provider: Annemarie Barrett Referrals: Annemarie Barrett DO [Primary Care Provider] - Print Language: Nepali
[2024-02-06] MEDS: Ondansetron 4 MG/2 ML Vial IV ×2 (07:14→20:45)
[2024-02-06] MEDS: 0.9% Normal Saline (1000mL) 1,000 ML 999 ML IV (07:14)
[2024-02-06] MEDS: Morphine 4 MG/ML Syringe IV ×2 (07:14→09:25)
[2024-02-06 07:21] LABS: Absolute Lymphocyte Count 1.45 X10^3/uL (0.83-4.51); Absolute Neutrophil Count 10.5 X10^3/uL (2.0-7.7); Basophil# 0.05 X10^3/uL; Basophil% 0.4 % (0-1); Eosinophil# 0.14 X10^3/uL; Eosinophils% 1.1 % (0-5); Hematocrit 41.5 % (37-47); Hemoglobin 13.9 g/dL (12.0-15.0); Lymphocyte # 1.45 X10^3/ul (0.83-4.51); Lymphocyte % 11.1 % (19-41); Mean Corp Hgb Conc 33.5 g/dL (32-36); Mean Corpuscular Hgb 30.3 pg (27.0-32.0); Mean Corpuscular Volume 90.6 fL (81-99); Mean Platelet Vol. 10.7 fl (6.2-12.0); Monocyte% 6.9 % (0-10); NRBC Flagged by Analyzer 0 % (0-5); Neutrophil # 10.51 X10^3/uL (2.7-7.7); Platelet Count 225 K/mm3 (150-450); RBC Distribution Width CV 13.4 % (11.6-14.6); RBC Distribution Width SD 44.7 fl (35.1-43.9); Red Blood Count 4.58 M/mm3 (4.2-5.4); White Blood Count 13.1 K/mm3 (4.4-11.0)
[2024-02-06 07:36] LABS: ALB/GLOB Ratio 0.9 RATIO (0.9-2.4); AST(SGOT) 9 U/L (15-37); Alanine Aminotransfer ALT/SGPT 19 U/L (13-56); Albumin, Serum 3.3 g/dL (3.2-5.0); Alkaline Phosphatase 67 U/L (45-117); Anion Gap 3 (5-15); BUN 9 mg/dL (7-18); BUN/Creat Ratio 13.2 RATIO (10-20); Calcium,Total 8.6 mg/dL (8.5-10.1); Chloride 108 mmol/L (98-107); Creatinine, Serum 0.68 mg/dL (0.55-1.02); EST Glomerular Filtration Rate 98 mL/min (>60); Est Glom Filt Rate - Afr Amer 118 mL/min (>60); Estimated Creatinine Clearance 103.34 ml/min; Globulin 3.7 g/dL (2.2-4.2); Glucose 116 mg/dL (74-106); Lipase 21 U/L (13-75); Sodium Level 136 mmol/L (136-145)
[2024-02-06 08:02] LABS: Bacteria 0 SEEN /hpf (None Seen); Mucous, Urine 0 SEEN /hpf (<or=2+)
[2024-02-06 08:03] LABS: Color, Urine Yellow (Yellow); Glucose, Dipstick Normal (Normal); Ketone-Dipstick Negative (Negative); Leukocyte Esterase-Dipstick Negative /ul (Negative); Nitrite-Dipstick Negative (Negative); Occult Blood-Urine Negative /ul (Negative); Protein-Dipstick Negative (Negative); Urine Bilirubin Dipstick Negative (Negative); Urine Clarity Sl. Cloudy (Clear); Urine Urobilinogen Normal (Normal)
[2024-02-06 08:09] LABS: Red Blood Cells-Urine 0-5 SEEN /hpf (0-5); Squamous Epithelial Cells - UA 0-5 SEEN /hpf (5-10); White Blood Cells 0-5 SEEN /hpf (0-5)
[2024-02-06] MEDS: Amox/Clavulanate 875 MG Tablet PO ×2 (10:16→17:26)
--- NOTE | 2024-02-06 12:19 | HP.PCM.HOS_ITS ---
HPI - General General Date of Admission: 02/06/24 HPI Narrative WILLIAMS GOLDEN, is a 48 F who presents to the hospital for 1 to 2 days of left-sided abdominal pain. She presented to the hospital today because it was fairly consistent with her previous episode of diverticulitis. She denies any significant nausea or vomiting, has not noticed any bloody stools. In the ER she had a CT scan of her abdomen and pelvis which demonstrated left descending colon diverticulitis with no perforation or abscess. She does have a slight leukocytosis of 13.1 and is afebrile. Pain was controlled with morphine she was given a dose of Augmentin p.o. in the ER. [facility] Medical History Ketonuria Urinary tract infection Contact with and (suspected) exposure to other viral communicable diseases COVID Wears glasses Depression Anxiety Restless legs Migraine headache History of ulceration Non-smoker History of diverticulitis History of seizures (in her 20s) Home Medications ?Medication ?Instructions ?Recorded ?Last Taken ?Type lorazepam 0.5 mg tablet 0.5 mg PO BID PRN Anxiety 10/05/17 Unknown History fluvoxamine 50 mg tablet 50 mg PO QHS depression 01/26/21 Unknown History buspirone 5 mg tablet 5 mg PO DAILY anxiety 09/29/21 Unknown History fluticasone propionate 50 2 spray intranasal DAILY PRN 10/23/21 Unknown History mcg/actuation nasal Congestion spray,suspension (Flonase Allergy Relief) levonorgestrel-ethinyl estradiol 1 tab PO DAILY control 02/06/24 Unknown History 0.1 mg-20 mcg tablet (Vienva) metoprolol succinate 25 mg 25 mg PO QHS blood pressure 02/06/24 Unknown History tablet,extended release 24 hr Allergy/AdvReac Type Severity Reaction Status Date / Time No Known Allergies Allergy Verified 01/28/24 10:21 Family History Mother Arthritis Cancer Hypertension High cholesterol Father Cancer Arthritis Sister High cholesterol Hypertension Surgical History History of colonoscopy History of bilateral salpingectomy History of tubal ligation Hx of wisdom tooth extraction History of Social History Smoking Status: Never smoker alcohol intake: never substance use type: does not use ROS Constitutional Constitutional: Denies chills, fatigue, fever(s) or malaise Eyes Eyes: Denies blurry vision ENT HEENT: Denies headache(s) or nasal discharge Cardiovascular Cardiovascular: Denies chest pain, dyspnea on exertion or syncope Respiratory/Chest Respiratory/Chest: Denies cough, shortness of breath at rest or shortness of breath with exertion Gastrointestinal Gastrointestinal: Reports abdominal pain and nausea; Denies constipation, diarrhea or vomiting Genitourinary Genitourinary: Denies dysuria Neurologic Neurologic: Denies focal weakness, numbness or tremor(s) Psychiatric Psychiatric: Denies anxiety or depression Vital Signs Vital Signs Vital Signs: 02/06/24 06:52 02/06/24 08:52 02/06/24 10:00 Temperature 97.2 F L Temperature Source Temporal Pulse Rate 81 77 77 Respiratory Rate 16 17 18 Blood Pressure 133/83 H 121/78 H 120/73 Blood Pressure Mean 99 92 88 Blood Pressure Source Blood Pressure Position Blood Pressure Location Pulse Ox 95 98 98 Oxygen Delivery Method Room Air Room Air Room Air 02/06/24 10:12 02/06/24 10:44 Temperature 98 F 98.3 F Temperature Source Oral Pulse Rate 74 69 Respiratory Rate 19 H 16 Blood Pressure 123/77 H 124/83 H Blood Pressure Mean 92 96 Blood Pressure Source Monitor Blood Pressure Position Semi-Fowlers Blood Pressure Location Left Arm Pulse Ox 97 96 Oxygen Delivery Method Room Air Weight Weight: 175 lb 11.335 oz Body Mass Index (BMI) 30.1 Physical Exam Narrative General: Alert, Oriented x3, Cooperative, No apparent distress HEENT: Atraumatic, PERRLA, EOMI, Normocephalic Oral: Moist Mucosa Neck: Supple, No JVD Lungs: Diminished, Normal air movement, No rhonchi, No wheeze, No rales Cardiovascular: Regular rate, Regular Rhythm, Normal S1, Normal S2, No murmurs Abdomen: Soft, tender to palpation left lower quadrant, Non-Distended, No Hepato-splenomegaly Extremities: No edema, Capillary Refill Less than 3 Seconds Skin: No rashes, No breakdown Musculoskeletal: No Tenderness to Palpation of Joints or Extremities Neurological: No focal neurological deficits, Motor Exam 5/5 strength throughout, Sensory exam intact to light touch and pain Psych/Mental Status: Normal Affect, Appropriate Results Lab / Micro Data 02/06/24 07:16 02/06/24 07:16 Labs: Laboratory Results - last 24 hr 02/06/24 07:16: WBC 13.1 H, RBC 4.58, Hgb 13.9, Hct 41.5, MCV 90.6, MCH 30.3, MCHC 33.5, RDW Std Deviation 44.7 H, RDW Coeff of Domenic 13.4, Plt Count 225, MPV 10.7, Immature Gran % (Auto) 0.500, Neut % (Auto) 80.0 H, Lymph % (Auto) 11.1 L, [place] % (Auto) 6.9, Eos % (Auto) 1.1, Baso % (Auto) 0.4, Absolute Neuts (auto) 10.5 H, Absolute Lymphs (auto) 1.45, Nucleated RBC % 0, Sodium 136, Potassium 4.0, Chloride 108 H, Carbon Dioxide 25.0, Anion Gap 3 L, BUN 9, Creatinine 0.68, Estim Creat Clear Calc 103.34, Est GFR (MDRD) Af Amer 118, Est GFR (MDRD) Non-Af 98, BUN/Creatinine Ratio 13.2, Glucose 116 H, Calcium 8.6, Total Bilirubin 0.40, AST 9 L, ALT 19, Alkaline Phosphatase 67, Total Protein 7.0, Albumin 3.3, Globulin 3.7, Albumin/Globulin Ratio 0.9, Lipase 21 02/06/24 07:55: Urine Color Yellow, Urine Clarity Sl. Cloudy, Urine pH 7.0, Ur Specific [place] 1.010, Urine Protein Negative, Urine Glucose (UA) Normal, Urine Ketones Negative, Urine Occult Blood Negative, Urine Nitrite Negative, Urine Bilirubin Negative, Urine Urobilinogen Normal, Ur Leukocyte Esterase Negative, Urine RBC 0-5 SEEN, Urine WBC 0-5 SEEN, Ur Squamous Epith Cells 0-5 SEEN, Urine Bacteria 0 SEEN, Urine Mucus 0 SEEN Imaging Radiology Impression Abdomen/Pelvis CT 02/06/24 07:02 IMPRESSION: 1. Acute diverticulitis of the descending colon. 2. No evidence of free air or drainable abscess. Electronically Signed: Aries Miner MD at 8:41 EDT Reading Location ID and State: [facility] / [place] Tel , Service support , Assessment & Plan Assessment/Plan (1) Diverticulitis: PLAN: Plan 1. Acute diverticulitis ? Continue with full liquid diet, CT scan demonstrated mild fat stranding on her left descending colon ? P.o. Augmentin twice daily ? Can add pain medication and nausea medication if necessary ? No IV fluids at this time as renal function is stable and she is able to tolerate p.o. 2. Essential HTN ? Blood pressure stable ? Continue with her home metoprolol ? Will monitor make adjustments as necessary 3. Anxiety/depression ? Stable ? Continue with her home medications DVT: Ambulation 75 minutes was spent on direct patient care, including documentation as well as chart review and collaboration with colleagues Charges/Coding Visit Charges Inpatient E&M: 45076 Init Hosp L3
[2024-02-06] MEDS: Acetaminophen 325 MG Tablet 650 MG PO (17:26)
[2024-02-06] MEDS: Metoprolol(XL)Succ 25 MG Tablet PO (22:16)
[2024-02-06] MEDS: fluvoxaMINE Maleate 50 MG Tablet PO (22:16)
[2024-02-06] MEDS: LEVONORGESTREL/ETHIN.ESTRADIOL 1 EACH TABLET PO (22:16)
[2024-02-07] MEDS: Acetaminophen 325 MG Tablet 650 MG PO (00:36)
[2024-02-07] MEDS: proCHLORPERazine 10 MG/2 ML Vial IV (01:10)
[2024-02-07] MEDS: DiphenhydrAMINE 50 MG/ML Syringe 25 MG IV (01:10)
[2024-02-07 04:00] VITALS: BP 130/81; PULSE 83; RESP 16; TEMP 37.2; O2SAT 96
[2024-02-07 04:12] VITALS: BP 130/81; PULSE 83; RESP 16; TEMP 37.2; O2SAT 96
[2024-02-07 06:41] LABS: Absolute Lymphocyte Count 1.96 X10^3/uL (0.83-4.51); Absolute Neutrophil Count 8.4 X10^3/uL (2.0-7.7); Basophil# 0.05 X10^3/uL; Basophil% 0.4 % (0-1); Eosinophil# 0.06 X10^3/uL; Eosinophils% 0.5 % (0-5); Hematocrit 40.7 % (37-47); Hemoglobin 13.6 g/dL (12.0-15.0); Lymphocyte # 1.96 X10^3/ul (0.83-4.51); Lymphocyte % 17.5 % (19-41); Mean Corp Hgb Conc 33.4 g/dL (32-36); Mean Corpuscular Hgb 30.5 pg (27.0-32.0); Mean Corpuscular Volume 91.3 fL (81-99); Mean Platelet Vol. 11.1 fl (6.2-12.0); Monocyte# 0.66 X10^3/uL; Monocyte% 5.9 % (0-10); NRBC Flagged by Analyzer 0 % (0-5); Neutrophil # 8.42 X10^3/uL (2.7-7.7); Neutrophil % 75.3 % (47-70); Platelet Count 230 K/mm3 (150-450); RBC Distribution Width CV 13.2 % (11.6-14.6); RBC Distribution Width SD 44.7 fl (35.1-43.9); Red Blood Count 4.46 M/mm3 (4.2-5.4); White Blood Count 11.2 K/mm3 (4.4-11.0)
[2024-02-07 07:38] LABS: Anion Gap 8 (5-15); BUN 6 mg/dL (7-18); BUN/Creat Ratio 10.2 RATIO (10-20); Calcium,Total 9.1 mg/dL (8.5-10.1); Chloride 106 mmol/L (98-107); Creatinine, Serum 0.59 mg/dL (0.55-1.02); EST Glomerular Filtration Rate 116 mL/min (>60); Est Glom Filt Rate - Afr Amer 140 mL/min (>60); Glucose 105 mg/dL (74-106); Sodium Level 138 mmol/L (136-145)
--- NOTE | 2024-02-07 08:12 | DCINST_ITS ---
Discharge Instructions Diet Discharge Diet: Light diet - advance as tolerated Activity Discharge Activity: Return to Normal Activity Dressing / Incision Call your doctor if you observe: Fever of 101 or Higher, Shortness of breath, Dizziness, Fainting spells, Swelling in the ankles, Chest pain and Increased palpitations (irregular heartbeat) Follow Up Care Test Results: Test results from this visit will be discussed in further detail at your follow- up appointment, if applicable. Discharge Plan Admission Admit Date/Time: 02/06/24 10:16 Attending Provider: Ronal Villalpando Primary Care Provider: Annemarie Barrett Discharge Orders/Prescriptions Prescriptions: New amoxicillin-pot clavulanate 875-125 mg Tablet 1 tab PO BIDCM 8 Days Qty: 16 0RF Continued fluvoxamine 50 mg tablet 50 mg PO QHS buspirone 5 mg tablet 5 mg PO DAILY lorazepam 0.5 MG tablet 0.5 mg PO BID PRN (Reason: Anxiety) fluticasone propionate [Flonase Allergy Relief] 50 mcg/actuation spray,suspension 2 spray INTRANASAL DAILY PRN (Reason: Congestion) Rx Instructions: administer into each nostril metoprolol succinate 25 mg tablet extended release 24 hr 25 mg PO QHS levonorgestrel-ethinyl estrad [Vienva] 0.1-20 mg-mcg tablet 1 tab PO DAILY Referrals / Follow Up: Annemarie Barrett DO [Primary Care Provider] - Within 1 Week Disposition Disposition (needs filled in before D/C Order can be placed): Home, Self Care
[2024-02-07] MEDS: busPIRone 5 MG Tablet PO (08:14)
[2024-02-07] MEDS: Amox/Clavulanate 875 MG Tablet PO (08:14)
[2024-02-07 08:38] VITALS: BP 132/87; PULSE 65; RESP 16; TEMP 36.7; O2SAT 98
--- NOTE | 2024-02-07 09:12 | PCM.DC.SUM ---
Providers Date of Admission: 02/06/24 Primary Care Physician: Dr. Annemarie Barrett DO Reason For Visit: DIVERTICULITIS Diagnosis Discharge Diagnosis (1) Diverticulitis: Status: Chronic Code(s): K57.92 - Diverticulitis of intestine, part unspecified, without perforation or abscess without bleeding Medications at Discharge Home Medications lorazepam 0.5 mg tablet 0.5 mg PO BID PRN Anxiety 10/05/17 fluvoxamine 50 mg tablet 50 mg PO QHS depression 01/26/21 buspirone 5 mg tablet 5 mg PO DAILY anxiety 09/29/21 fluticasone propionate 50 mcg/actuation nasal spray,suspension (Flonase Allergy Relief) 2 spray intranasal DAILY PRN Congestion 10/23/21 levonorgestrel-ethinyl estradiol 0.1 mg-20 mcg tablet (Vienva) 1 tab PO DAILY control 02/06/24 metoprolol succinate 25 mg tablet,extended release 24 hr 25 mg PO QHS blood pressure 02/06/24 amoxicillin 875 mg-potassium clavulanate 125 mg tablet 1 tab PO BIDCM 8 days #16 tabs 02/07/24 Hospital Course Operations None Procedures None Summary of Care Provided Minutes Spent on Discharge: 32 Hospital Course: Per HPI: WILLIAMS GOLDEN, is a 48 F who presents to the hospital for 1 to 2 days of left-sided abdominal pain. She presented to the hospital today because it was fairly consistent with her previous episode of diverticulitis. She denies any significant nausea or vomiting, has not noticed any bloody stools. In the ER she had a CT scan of her abdomen and pelvis which demonstrated left descending colon diverticulitis with no perforation or abscess. She does have a slight leukocytosis of 13.1 and is afebrile. Pain was controlled with morphine she was given a dose of Augmentin p.o. in the ER. Hospital Course: 1. Acute diverticulitis?48-year-old female presented to the hospital with left-sided abdominal pain for 24 to 48 hours prior to presentation. She was able to tolerate p.o. intake while here and her white count went from 13 down to 11 on the day of discharge. She was able to tolerate her oral antibiotics. She still has left-sided pain but she says it is not as acute as it had been and she is able to ambulate and tolerate p.o. I discussed with her the possibility of discharge today she expressed understanding the risk benefits of going home and would like to go home today. I recommend that she follow-up with her PCP in 3 to 5 days and will continue with Augmentin p.o. twice daily for another 8 days. 2. Essential hypertension, anxiety, depression are chronic medical conditions which complicate her care. Her home medications were continued where appropriate Physical Exam Narrative General: Alert, Oriented x3, Cooperative, No apparent distress HEENT: Atraumatic, PERRLA, EOMI, Normocephalic Oral: Moist Mucosa Neck: Supple, No JVD Lungs: Diminished, Normal air movement, No rhonchi, No wheeze, No rales Cardiovascular: Regular rate, Regular Rhythm, Normal S1, Normal S2, No murmurs Abdomen: Soft, tender to palpation left lower quadrant, Non-Distended, No Hepato-splenomegaly Extremities: No edema, Capillary Refill Less than 3 Seconds Skin: No rashes, No breakdown Musculoskeletal: No Tenderness to Palpation of Joints or Extremities Neurological: No focal neurological deficits, Motor Exam 5/5 strength throughout, Sensory exam intact to light touch and pain Psych/Mental Status: Normal Affect, Appropriate Weight / BMI Weight Weight: 175 lb 11.335 oz Body Mass Index (BMI) 30.1 ABG / Lab / Microbiology Data 02/07/24 05:56 02/07/24 05:56 Laboratory: Laboratory Results - last 24 hr 02/07/24 05:56: WBC 11.2 H, RBC 4.46, Hgb 13.6, Hct 40.7, MCV 91.3, MCH 30.5, MCHC 33.4, RDW Std Deviation 44.7 H, RDW Coeff of Domenic 13.2, Plt Count 230, MPV 11.1, Immature Gran % (Auto) 0.400, Neut % (Auto) 75.3 H, Lymph % (Auto) 17.5 L, [place] % (Auto) 5.9, Eos % (Auto) 0.5, Baso % (Auto) 0.4, Absolute Neuts (auto) 8.4 H, Absolute Lymphs (auto) 1.96, Nucleated RBC % 0, Sodium 138, Potassium 4.0, Chloride 106, Carbon Dioxide 24.0, Anion Gap 8, BUN 6 L, Creatinine 0.59, Estim Creat Clear Calc 119.10, Est GFR (MDRD) Af Amer 140, Est GFR (MDRD) Non-Af 116, BUN/Creatinine Ratio 10.2, Glucose 105, Calcium 9.1 D/C Instructions Discharge Diet: Light diet - advance as tolerated Call your doctor if you observe: Fever of 101 or Higher, Shortness of breath, Dizziness, Fainting spells, Swelling in the ankles, Chest pain and Increased palpitations (irregular heartbeat) Meaningful Use Info Meaningful Use Meaningful Use Diagnoses (Choose all that apply): None applicable Ischemic Stroke Statin Dosing Therapy Reference: STATIN DOSE THERAPY REFERENCE: * Patients > 75 years receive moderate or high dose statin therapy. * Patients 75 years or YOUNGER should receive HIGH intensity statin dose unless contraindicated. You will be required to document reason for non-treatment if statin daily dose does not meet guidelines. HIGH DOSE STATIN THERAPY DAILY Atorvastatin > than or = to 40 mg Rosuvastatin > than or = to 20 mg Amlodipine + Atorvastatin > than or = to 2.5/40 mg Ezetimibe + Simvastatin 10/80 mg Simvastatin 80mg Discharge Plan Admission Admit Date/Time: 02/06/24 10:16 Attending Provider: Ronal Villalpando Primary Care Provider: Annemarie Barrett Discharge Orders/Prescriptions Prescriptions: New amoxicillin-pot clavulanate 875-125 mg Tablet 1 tab PO BIDCM 8 Days Qty: 16 0RF Continued fluvoxamine 50 mg tablet 50 mg PO QHS buspirone 5 mg tablet 5 mg PO DAILY lorazepam 0.5 MG tablet 0.5 mg PO BID PRN (Reason: Anxiety) fluticasone propionate [Flonase Allergy Relief] 50 mcg/actuation spray,suspension 2 spray INTRANASAL DAILY PRN (Reason: Congestion) Rx Instructions: administer into each nostril metoprolol succinate 25 mg tablet extended release 24 hr 25 mg PO QHS levonorgestrel-ethinyl estrad [Vienva] 0.1-20 mg-mcg tablet 1 tab PO DAILY Referrals / Follow Up: Annemarie Barrett DO [Primary Care Provider] - Within 1 Week Disposition Disposition (needs filled in before D/C Order can be placed): Home, Self Care Charges/Coding Visit Charges Inpatient E&M: 30442 Disch Hosp >30min
--- NOTE | 2024-02-07 09:23 | CASEMGMT ---
SW met with pt to discuss advance directives.? Pt confirms she has completed a living will and health care POA naming Russell, spouse.? Pt notified that documents are not on file at [facility] and SW requested they be brought in for scanning into the EMR.? ARACELI Weiner
--- NOTE | 2024-02-07 09:38 | PHA.DC_ITS ---
Pharmacy [facility] has performed discharge medication reconciliation and counseling for this patient. Patient requested meds to [facility], [facility] called retial and requested delivery. 1. AUGMENTIN 875/125MG 1T PO BID X 8 DAYS The patient's discharge medication list was reviewed for discrepancies and discrepancies were resolved. The patient was counseled on the following discharge medications and changes in medications for homegoing were reviewed. The Reason for Use, instructions for use, and potential side effects were reviewed for all new medications. The patient's questions regarding all of their medications were answered. The patient was able to verbally demonstrate an understanding of their discharge medications. Patient counseled by pharmacy benefits coordinatorChidi. Medications at Discharge Home Medications lorazepam 0.5 mg tablet 0.5 mg PO BID PRN Anxiety 10/05/17 fluvoxamine 50 mg tablet 50 mg PO QHS depression 01/26/21 buspirone 5 mg tablet 5 mg PO DAILY anxiety 09/29/21 fluticasone propionate 50 mcg/actuation nasal spray,suspension (Flonase Allergy Relief) 2 spray intranasal DAILY PRN Congestion 10/23/21 levonorgestrel-ethinyl estradiol 0.1 mg-20 mcg tablet (Vienva) 1 tab PO DAILY control 02/06/24 metoprolol succinate 25 mg tablet,extended release 24 hr 25 mg PO QHS blood pressure 02/06/24 amoxicillin 875 mg-potassium clavulanate 125 mg tablet 1 tab PO BIDCM 8 days #16 tabs 02/07/24
[2024-02-07 13:20] VITALS: BP 119/82; PULSE 72; RESP 16; TEMP 36.7; O2SAT 100
== END 2024-02-07 13:30 | disposition home or self-care (01) ==
LOC: ED 07:37 → MS3 13:43
PROVIDERS: Admitting Provider Family Medicine; Emergency Provider Emergency Medicine; PCP Family Medicine; Visit Provider Family Medicine
DX: K57.92 Diverticulitis of intestine, part unspecified, without perforation or abscess without bleeding (principal); Z86.16 Personal history of COVID-19; F41.9 Anxiety disorder, unspecified; I10 Essential (primary) hypertension; K21.9 Gastro-esophageal reflux disease without esophagitis; R11.0 Nausea; Z79.899 Other long term (current) drug therapy; F32.A Depression, unspecified
CPT/HCPCS: 36415; 74177; 80048; 80053; 81001; 83690; 85025; 96361; 96374; 96375; 96376; 99221; 99283; J7030; Q9967; A4216; G0378; J2405

== ENCOUNTER → 2024-02-21 | Outpatient (CLI) | payer BC, SELFPAY ==
[2024-02-21 15:12] LABS: Absolute Lymphocyte Count 1.46 X10^3/uL (0.83-4.51); Absolute Neutrophil Count 7.4 X10^3/uL (2.0-7.7); Basophil# 0.04 X10^3/uL; Basophil% 0.4 % (0-1); Eosinophil# 0.13 X10^3/uL; Eosinophils% 1.4 % (0-5); Hematocrit 42.1 % (37-47); Hemoglobin 13.8 g/dL (12.0-15.0); Lymphocyte # 1.46 X10^3/ul (0.83-4.51); Lymphocyte % 15.2 % (19-41); Mean Corp Hgb Conc 32.8 g/dL (32-36); Mean Corpuscular Hgb 30.4 pg (27.0-32.0); Mean Corpuscular Volume 92.7 fL (81-99); Mean Platelet Vol. 11.2 fl (6.2-12.0); Monocyte# 0.49 X10^3/uL; Monocyte% 5.1 % (0-10); NRBC Flagged by Analyzer 0 % (0-5); Neutrophil # 7.43 X10^3/uL (2.7-7.7); Neutrophil % 77.6 % (47-70); Platelet Count 310 K/mm3 (150-450); RBC Distribution Width CV 13.8 % (11.6-14.6); RBC Distribution Width SD 47.2 fl (35.1-43.9); Red Blood Count 4.54 M/mm3 (4.2-5.4); White Blood Count 9.6 K/mm3 (4.4-11.0)
[2024-02-21 15:33] LABS: ALB/GLOB Ratio 0.9 RATIO (0.9-2.4); AST(SGOT) 11 U/L (15-37); Alanine Aminotransfer ALT/SGPT 23 U/L (13-56); Albumin, Serum 3.5 g/dL (3.2-5.0); Alkaline Phosphatase 68 U/L (45-117); Anion Gap 8 (5-15); BUN 8 mg/dL (7-18); BUN/Creat Ratio 12.4 RATIO (10-20); Calcium,Total 9.2 mg/dL (8.5-10.1); Chloride 104 mmol/L (98-107); Creatinine, Serum 0.64 mg/dL (0.55-1.02); EST Glomerular Filtration Rate 104 mL/min (>60); Est Glom Filt Rate - Afr Amer 126 mL/min (>60); Glucose 82 mg/dL (74-106); Protein, Total 7.5 g/dL (6.4-8.2); Sodium Level 137 mmol/L (136-145)
== END | disposition home or self-care (01) ==
LOC: MTLAB 11:23
PROVIDERS: PCP Family Medicine; Referring Provider Nurse Practitioner Family; Visit Provider Nurse Practitioner Family
DX: R10.32 Left lower quadrant pain (principal)
CPT/HCPCS: 36415; 80053; 85025

== ENCOUNTER → 2024-02-23 | Outpatient (CLI) | payer BC, SELFPAY ==
--- NOTE | 2024-02-23 13:14 | US_ITS ---
STUDY: ULTRASOUND OF THE FEMALE PELVIS - COMPLETE REASON FOR EXAM: Female, 48 years old. HX OVARIAN CYSTS LMP: 02/11/2024 TECHNIQUE: Transabdominal TECHNICAL QUALITY: Adequate. COMPARISON: None. FINDINGS: The uterus is anteverted and is in a midline position. The uterus measures 8.7 x 5.7 x 5.4 cm. Normal uterine cervix. The endometrium measures 3 mm in thickness, and is hyperechoic. There is no demonstrated endometrial mass. There is no demonstrated myometrial mass. I.U.D. - The patient does not have an I.U.D. The right ovary is visualized. The right ovary measures 2.8 x 1.7 x 1.7 cm. There is no right ovarian cyst or ovarian mass. There is no visualized right adnexal mass or complex lesion. There is normal arterial and normal venous vascularity. The left ovary is visualized. The left ovary measures 3.5 x 2.1 x 1.7 cm. There is no left ovarian cyst or ovarian mass. There is no visualized left adnexal mass or complex lesion. There is normal arterial and normal venous vascularity. There is no fluid in the cul-de-sac. The pre void volume of the bladder was ml. The post void volume of the bladder was ml. Polycystic ovary disease: No. US/Pelvic (Non ) IMPRESSION: Normal female pelvis. Electronically Signed: Neri Davis MD at 9:38 EDT ,
== END | disposition home or self-care (01) ==
LOC: US 13:12
PROVIDERS: PCP Family Medicine; Referring Provider Nurse Practitioner Family; Visit Provider Nurse Practitioner Family
DX: R10.32 Left lower quadrant pain (principal)
CPT/HCPCS: 76856

== ENCOUNTER → 2025-03-12 | Outpatient (CLI) | payer BC, SELFPAY ==
[2025-03-12 12:39] LABS: Hematocrit 44.2 % (37-47); Hemoglobin 14.7 g/dL (12.0-15.0); Immature Granulocytes Count 0.020 X10^3/uL (0.0-0.0); Mean Corp Hgb Conc 33.3 g/dL (32-36); Mean Corpuscular Volume 92.9 fL (81-99); Mean Platelet Vol. 11.3 fl (6.2-12.0); NRBC Flagged by Analyzer 0 % (0-5); Platelet Count 292 K/mm3 (150-450); RBC Distribution Width CV 13.3 % (11.6-14.6); RBC Distribution Width SD 46.0 fl (35.1-43.9); Red Blood Count 4.76 M/mm3 (4.2-5.4); White Blood Count 7.1 K/mm3 (4.4-11.0)
[2025-03-12 13:25] LABS: Cholesterol 248 mg/dL (<=200); Free T3 3.4 pg/mL (2.18-3.98); Low Density Lipoprotein Calc. 157 mg/dL; Triglycerides 232 mg/dL; Very Low Density Lipoprotein 46 mg/dL (5-40); cholesterol:hdl ratio screen 5.56
[2025-03-12 13:31] LABS: AST(SGOT) 16 U/L (<=31); Alanine Aminotransfer ALT/SGPT 16 U/L (<=34); Albumin, Serum 4.1 g/dL (3.5-5.0); Alkaline Phosphatase 66 U/L (35-104); Anion Gap 14 (5-15); BUN 10 mg/dL (4-19); BUN/Creat Ratio 14.8 RATIO (10-20); Calcium,Total 9.7 mg/dL (7.6-11.0); Carbon Dioxide 22.6 mmol/L (21.0-32.0); Chloride 104 mmol/L (98-108); Globulin 3.1 g/dL (2.2-4.2); Glucose 101 mg/dL (70-99); Potassium 4.3 mmol/L (3.3-5.1)
== END | disposition home or self-care (01) ==
LOC: BFHLAB 09:30
PROVIDERS: PCP Family Medicine; Visit Provider Family Medicine
DX: Z00.00 Encounter for general adult medical examination without abnormal findings (principal); I10 Essential (primary) hypertension; R00.0 Tachycardia, unspecified
CPT/HCPCS: 36415; 80053; 80061; 84439; 84443; 84481; 85025

== ENCOUNTER → 2025-03-19 | Outpatient (CLI) | payer BC, SELFPAY | END | disposition home or self-care (01) | LOC: LABSPEC 11:41 | PROVIDERS: PCP Family Medicine; Visit Provider Physician Assistant | DX: R30.0 Dysuria (principal) | CPT/HCPCS: 87086; 87088 ==